=== PATIENT | male | born 1980 | race Caucasian/White ===

== ENCOUNTER 2020-07-08 18:59 | Emergency (ER) | payer MEDICAID ==
[~2020-07-08] VITALS: Ht 175.3 cm; Wt 86.4 kg
[2020-07-08] MEDS ORDERED: LORazepam 2 mg/ml vial IV ONE (19:30)
[2020-07-08] MEDS ORDERED: ondansetron/PF 4mg/2ml inj IV ONE (19:30)
[2020-07-08 19:50] LABS: BASOPHILS # (AUTO) 0.1 X10'3 (0-0.2); LYMPHOCYTES # (AUTO) 0.6 X10'3 (1.1-4.8); MONOCYTES # (AUTO) 0.4 X10'3 (0-0.9); NEUTROPHILS # (AUTO) 2.6 X10'3 (1.8-7.7); WHITE BLOOD COUNT 3.6 X10'3 (4.5-11.0)
[2020-07-08 19:52] LABS: BASOPHILS % (AUTO) 2.3 % (0-1); EOSINOPHILS % (AUTO) 0.3 % (0-6); HEMATOCRIT 45.3 % (42.0-52.0); HEMOGLOBIN 15.5 g/dl (14.0-17.9); LYMPHOCYTES % (AUTO) 15.2 % (21-51); MEAN CORPUSCULAR HEMOGLOBIN 32.3 PG (27.0-31.0); MEAN CORPUSCULAR HGB CONC 34.2 g/dL (33.0-36.5); MEAN CORPUSCULAR VOLUME 94.5 FL (78-98); MEAN PLATELET VOLUME 7.2 FL (7.4-10.4); MONOCYTES % (AUTO) 11.7 % (2-12); NEUTROPHILS % (AUTO) 70.5 % (42-75); PLATELET COUNT 377 X10'3 (140-440); RED BLOOD COUNT 4.79 X10'6 (4.70-6.10); RED CELL DISTRIBUTION WIDTH 16.4 % (11.5-14.5)
[2020-07-08 20:03] LABS: ALANINE AMINOTRANSFERASE 42 U/L (12-78); ALBUMIN/GLOBULIN RATIO 1.3 (1.1-1.5); ALKALINE PHOSPHATASE 51 IU/L (46-116); ANION GAP 11 (8-16); ASPARTATE AMINO TRANSFERASE 33 U/L (10-37); BILIRUBIN,TOTAL 0.5 MG/DL (0.1-1.0); BLOOD UREA NITROGEN 7 MG/DL (7-18); BUN/CREATININE RATIO 7.1 (5.4-32.0); CALCIUM 8.3 MG/DL (8.5-10.1); CHLORIDE 99 MMOL/L (99-107); CREATININE 0.99 MG/DL (0.60-1.10); GLUCOSE 110 MG/DL (70-104); MAGNESIUM 1.7 MG/DL (1.5-2.4); PHOSPHORUS 1.5 MG/DL (2.3-4.5); POTASSIUM 3.5 MMOL/L (3.5-5.1); SODIUM 132 MMOL/L (135-145); TOTAL CARBON DIOXIDE 21.7 MMOL/L (24-32); TOTAL PROTEIN 7.2 G/DL (6.4-8.2); eGFR 83 ML/MIN
--- NOTE | 2020-07-08 20:21 | NUR ---
PER MOM SEIZURE LASTED ABOUT 60 SEC DID NOT HIT HIS HEAD, PT WAS SITTING ON BED THEN FELL BACKWARDS ON PILLOWS AND HIS ARMS WENT UP AND STARTED GURGLING THEN MOTHER ROLLED HIM ON HIS SIDE. [phone] ROSSY
[2020-07-08] MEDS ORDERED: normal saline 1000ML IV soln IVB ONE (20:25)
[2020-07-08] MEDS ORDERED: ketorolac trometh. 30mg/ml inj. IV ONE (20:25)
[2020-07-08] MEDS ORDERED: morphine 4 MG/ML inj SYRINge IV ONE (21:10)
[2020-07-08 21:54] LABS: CLARITY,URINE CLEAR (Clear); COLOR,URINE YELLOW (Yellow); GLUCOSE, URINE NEGATIVE (Neg); KETONES,URINE 15 mg/dl (Neg); LEUKOCYTE ESTERASE ,URINE TRACE (Neg); NITRITES, URINE NEGATIVE (Neg); OCCULT BLOOD,URINE TRACE-INTACT (Neg); PROTEIN,URINE NEGATIVE (Neg); UROBILINOGEN,URINE 0.2 E.U/dL (0.2-1.0)
[2020-07-08 21:56] LABS: UA COLLECTION TYPE VOIDED
[2020-07-08 22:00] LABS: BACTERIA,URINE FEW /HPF (Neg); RBC,URINE 0-2 /HPF (0-2); SQUAMOUS EPITHELIAL CELL,UR FEW /LPF (FEW); WBC,URINE 0-4 /HPF (0-4)
[2020-07-08] MEDS ORDERED: KEP500T PO (22:45)
[2020-07-08] MEDS ORDERED: levetiracetam 250mg tablet PO ONE (22:45)
[2020-07-08 23:05] VITALS: BP 167/109
== END 2020-07-08 23:12 | disposition home or self-care (01) ==
LOC: ER 19:00
DX: R40.0 Somnolence (principal); G40.909 Epilepsy, unspecified, not intractable, without status epilepticus; R11.0 Nausea; I10 Essential (primary) hypertension; F12.90 Cannabis use, unspecified, uncomplicated; Z86.69 Personal history of other diseases of the nervous system and sense organs; Z98.890 Other specified postprocedural states; Z72.89 Other problems related to lifestyle; Z79.899 Other long term (current) drug therapy
CPT/HCPCS: 36415; 80053; 81001; 82948; 83735; 84100; 85025; 87088; 93005; 96361; 96374; 96375; 99285; J1885; J2060; J2270; J2405; J7030

== ENCOUNTER 2020-11-01 17:48 | Inpatient (IN) | payer MEDICAID ==
[~2020-11-01] VITALS: Ht 172.7 cm; Wt 88.6 kg
[~2020-11-01 17:48] MED LIST: KEP500T PO
[2020-11-01] MEDS ORDERED: normal saline 1000ML IV soln IV ONE (18:00)
[2020-11-01 18:43] LABS: CLARITY,URINE SLIGHTLY CLOUDY (Clear); COLOR,URINE RED (Yellow)
[2020-11-01 18:45] LABS: UA COLLECTION TYPE VOIDED
[2020-11-01 18:52] LABS: MUCUS STRANDS FEW /LPF (Neg); SQUAMOUS EPITHELIAL CELL,UR FEW /LPF (FEW)
[2020-11-01 18:53] LABS: FINE GRANULAR CAST 0-3 /LPF (NEGATIVE)
[2020-11-01 18:54] LABS: RBC,URINE 0-2 /HPF (0-2); RENAL CELLS, URINE MANY /HPF; WBC,URINE 0-4 /HPF (0-4)
[2020-11-01 18:56] LABS: BACTERIA,URINE NONE SEEN /HPF (Neg)
[2020-11-01 19:01] LABS: BASOPHILS % (AUTO) 0.2 % (0-1); EOSINOPHILS % (AUTO) 0 % (0-6); HEMATOCRIT 51.6 % (42.0-52.0); HEMOGLOBIN 17.5 g/dl (14.0-17.9); LYMPHOCYTES # (AUTO) 0.6 X10'3 (1.1-4.8); LYMPHOCYTES % (AUTO) 3.6 % (21-51); MEAN CORPUSCULAR HEMOGLOBIN 30.8 PG (27.0-31.0); MEAN CORPUSCULAR HGB CONC 33.9 g/dL (33.0-36.5); MEAN CORPUSCULAR VOLUME 90.9 FL (78-98); MEAN PLATELET VOLUME 7.9 FL (7.4-10.4); MONOCYTES # (AUTO) 1.5 X10'3 (0-0.9); MONOCYTES % (AUTO) 9.7 % (2-12); NEUTROPHILS # (AUTO) 13.3 X10'3 (1.8-7.7); NEUTROPHILS % (AUTO) 86.5 % (42-75); PLATELET COUNT 341 X10'3 (140-440); RED BLOOD COUNT 5.68 X10'6 (4.70-6.10); RED CELL DISTRIBUTION WIDTH 13.4 % (11.5-14.5); WHITE BLOOD COUNT 15.4 X10'3 (4.5-11.0)
[2020-11-01 19:05] LABS: ALANINE AMINOTRANSFERASE 30 U/L (12-78); ALBUMIN 4.5 G/DL (3.4-5.0); ALBUMIN/GLOBULIN RATIO 1.3 (1.1-1.5); ALKALINE PHOSPHATASE 56 IU/L (46-116); ANION GAP 16 (8-16); ASPARTATE AMINO TRANSFERASE 64 U/L (10-37); BILIRUBIN,TOTAL 1.4 MG/DL (0.1-1.0); BLOOD UREA NITROGEN 17 MG/DL (7-18); BUN/CREATININE RATIO 6.3 (5.4-32.0); CALCIUM 8.9 MG/DL (8.5-10.1); CHLORIDE 97 MMOL/L (99-107); CREATININE 2.68 MG/DL (0.60-1.10); GLUCOSE 142 MG/DL (70-104); POTASSIUM 3.1 MMOL/L (3.5-5.1); SODIUM 139 MMOL/L (135-145); TOTAL CARBON DIOXIDE 25.8 MMOL/L (24-32); TOTAL PROTEIN 8.1 G/DL (6.4-8.2); eGFR 26 ML/MIN
[2020-11-01 19:13] LABS: ETHANOL < 0.010 GM/DL (0.0-0.010)
[2020-11-01 19:17] LABS: URINE AMPHETAMINE SCREEN NEGATIVE (Neg); URINE BARBITUATE SCREEN NEGATIVE (Neg); URINE BENZODIAZEPINES SCREEN NEGATIVE (Neg); URINE CANNABINOID SCREEN NEGATIVE (Neg); URINE COCAINE SCREEN NEGATIVE (Neg); URINE METHADONE SCREEN NEGATIVE (Neg); URINE OPIATE SCREEN NEGATIVE (Neg); URINE PHENCYCLIDINE SCREEN NEGATIVE (Neg)
[2020-11-01 19:18] LABS: ACETAMINOPHEN < 2.0 UG/ML (10-30)
--- NOTE | 2020-11-01 19:46 | NUR ---
CONTACTED POISON CONTROL FOP INGESTION OF 16 OZ OF ACETONE(PER PT) , SPOKE WITH TRACEY AT THE [facility], LOOK FOR CND DEPRESSION AND GI UPSET . PT MAY SPELL OF ACETONE CHECK SKIN AND LIPS. S/S OF INGESTION ARE SIMILAR TO ETOH INTOXIFICATION , NEURO CHECK Q HR , SEIZURE PRECAUTIONS , AMBULATE WITH ASSISTANCE . REPEAT CBC , ADD MG , REPEAT CMP ADD AMAYLASE AND LIPASE,WITH LATIC 4 HR AFTER 1 DRAW . TREAT POTASSIUM OF 3.1 . URINE MAY BE POSITIVES FOR KETONES. PT MAY EXHIBIT MILD ACIDOSIS . MONITOR LABS . POISON CONTROL SUGGESTED X2 NS BOLUS WITH A BANANA BAG EKG FOR BASELINE AND ASSESS NS , MAY MEDICATED WITH ATIVAN FOR ANXIETY. AVOID SEDATIVES PERTICULARLY OPOIDS PER POISON CONTROL TO AVOID RESP DEPRESSION . MAY ALSO MEDICATE WITH PROTONIX AND ZOFRAN . .
--- NOTE | 2020-11-01 19:55 | NUR ---
pt to ct via wheel chair with instructional coach
[2020-11-01] MEDS ORDERED: potassium Cl 10 mEq/100mL bag IV ONE (20:00)
--- NOTE | 2020-11-01 20:03 | NUR ---
seizure precautions placed as recommended by poison control .
[2020-11-01] MEDS ORDERED: acetaminophen 325mg tablet PO PRN (20:05)
[2020-11-01] MEDS ORDERED: magnesium Cl slow-release 64mg tablet PO PRN (20:05)
[2020-11-01] MEDS ORDERED: magnesium 2GM in 50ml NS 50 ML IV PRN (20:05)
[2020-11-01] MEDS ORDERED: mag hydrox/Alum hydrox/simeth 30ml oral suspension PO PRN (20:05)
[2020-11-01] MEDS ORDERED: thiamine inj. 100 MG in normal saline 100ml IV soln 100 ML IV ONE (20:05)
[2020-11-01] MEDS ORDERED: magnesium hydroxide 30ml (MOM) UD suspension PO PRN (20:05)
[2020-11-01] MEDS ORDERED: magnesium 4gm in 100ml NS 100 ML IV PRN (20:05)
[2020-11-01] MEDS ORDERED: haloperidol 5mg tablet PO PRN (20:05)
[2020-11-01] MEDS ORDERED: potassium Cl 20 mEq SR tablet PO PRN (20:05)
[2020-11-01] MEDS ORDERED: potassium Cl 40MEQ/1/2NS 520ml 520 ML IV PRN (20:05)
[2020-11-01] MEDS ORDERED: folic acid 1mg/0.2ml inj IV ONE (20:15)
[2020-11-01] MEDS ORDERED: MULT-1085 PO (20:24)
[2020-11-01] MEDS ORDERED: HYDR25TA4 PO (20:24)
[2020-11-01] MEDS ORDERED: IBUP-1985 PO (20:24)
[2020-11-01] MEDS ORDERED: LEVE500T PO (20:24)
[2020-11-01] MEDS ORDERED: ZINC30CA PO (20:25)
--- NOTE | 2020-11-01 20:30 | NUR ---
PT C/O PAIN AT IV SITE . TO RIGHT WRIST . SITE COOL TO TOUCH FLUSHES WELL WITH GOOD BLOOD RETURN . WILL CONTINUE TO MONITOR . SLOWED BOLUS POTASSIUM IS ALSO INFUSING FROM THAT SITE. ATTEMPTD TO RESTART THE IV TO THE LEFT EXTREMITY WITH OUT POSITIVE RESULT . PT TOLERATED WELL .PRIMARY RN FARHAT AWARE OF IV ISSUES WILL CONTINUE TO MONITOR AND REASSESS NEEDED
[2020-11-01 20:31] LABS: ABG BASE EXCESS -4.6 mmol/L (-2.0-2.0); ABG HCO3 17.6 mmol/L (22.0-26.0); ABG PO2 (T) 76.6 mmHg (75.0-100.0); ALLEN'S TEST POSITIVE; FCOHb 0.9 % (0.0-3.9); FMetHb 0.3 % (0.0-1.5); FO2Hb 94.8 % (94-97); PATIENT TEMPERATURE 36.4; TOTAL HEMOGLOBIN 16.5 G/dl (14.0-18.0)
[2020-11-01] MEDS: normal saline 1000ml 1,000 ML IV SCH (20:46)
[2020-11-01] MEDS ORDERED: thiamine inj. 100 MG, MVI, adult No.4 with vit. K 10 ML in dextrose 5% water 500ml 500 ML IV SCH ×3 (21:00)
[2020-11-01] MEDS: ondansetron/PF 4mg/2ml inj IV PRN (21:21)
[2020-11-01] MEDS: LORazepam 2 mg/ml vial IV PRN (21:37)
--- NOTE | 2020-11-01 21:47 | NUR ---
PT MOTHER CALLED ALIVIA [phone] . PT HAS GIVEN PERMISSION TO TELL HER HE JEAN-PIERRE GOING TO BE ADMITTED
[2020-11-02] MEDS: ondansetron/PF 4mg/2ml inj IV PRN ×2 (04:18→21:49)
[2020-11-02 06:23] LABS: BASOPHILS % (AUTO) 0.2 % (0-1); EOSINOPHILS % (AUTO) 0 % (0-6); HEMATOCRIT 46.1 % (42.0-52.0); HEMOGLOBIN 15.6 g/dl (14.0-17.9); LYMPHOCYTES # (AUTO) 1.2 X10'3 (1.1-4.8); LYMPHOCYTES % (AUTO) 13.4 % (21-51); MEAN CORPUSCULAR HEMOGLOBIN 30.7 PG (27.0-31.0); MEAN CORPUSCULAR HGB CONC 33.9 g/dL (33.0-36.5); MEAN CORPUSCULAR VOLUME 90.7 FL (78-98); MEAN PLATELET VOLUME 8.1 FL (7.4-10.4); MONOCYTES # (AUTO) 1.2 X10'3 (0-0.9); MONOCYTES % (AUTO) 12.9 % (2-12); NEUTROPHILS # (AUTO) 6.9 X10'3 (1.8-7.7); NEUTROPHILS % (AUTO) 73.5 % (42-75); PLATELET COUNT 265 X10'3 (140-440); RED BLOOD COUNT 5.08 X10'6 (4.70-6.10); RED CELL DISTRIBUTION WIDTH 13.6 % (11.5-14.5); WHITE BLOOD COUNT 9.3 X10'3 (4.5-11.0)
[2020-11-02 06:31] LABS: ALANINE AMINOTRANSFERASE 25 U/L (12-78); ALBUMIN 3.4 G/DL (3.4-5.0); ALBUMIN/GLOBULIN RATIO 1.3 (1.1-1.5); ALKALINE PHOSPHATASE 40 IU/L (46-116); AMYLASE 86 U/L (25-115); ANION GAP 10 (8-16); ASPARTATE AMINO TRANSFERASE 44 U/L (10-37); BILIRUBIN,TOTAL 0.7 MG/DL (0.1-1.0); BLOOD UREA NITROGEN 15 MG/DL (7-18); BUN/CREATININE RATIO 8.1 (5.4-32.0); CALCIUM 7.4 MG/DL (8.5-10.1); CHLORIDE 106 MMOL/L (99-107); CREATININE 1.85 MG/DL (0.60-1.10); GLUCOSE 119 MG/DL (70-104); LIPASE 58 U/L (73-393); MAGNESIUM 1.8 MG/DL (1.5-2.4); PHOSPHORUS 2.5 MG/DL (2.3-4.5); SODIUM 141 MMOL/L (135-145); TOTAL CARBON DIOXIDE 25.3 MMOL/L (24-32); TOTAL PROTEIN 6.1 G/DL (6.4-8.2); eGFR 40 ML/MIN
[2020-11-02 07:06] LABS: POTASSIUM 2.9 MMOL/L (3.5-5.1)
[2020-11-02] MEDS: LORazepam 2 mg/ml vial IV PRN ×2 (07:39→21:50)
[2020-11-02] MEDS: pantoprazole 40 MG vial IV SCH (07:39)
[2020-11-02] MEDS: normal saline 1000ml 1,000 ML IV SCH ×2 (07:39→17:06)
[2020-11-02] MEDS: K and/or MAG REPLACEMENT MC SCH ×2 (07:52→20:00)
[2020-11-02] MEDS ORDERED: thiamine inj. 100 MG, MVI, adult No.4 with vit. K 10 ML in dextrose 5% water 500ml 500 ML IV SCH ×3 (08:00)
[2020-11-02] MEDS: potassium Cl 40MEQ/1/2NS 520ml 520 ML IV PRN ×2 (08:15→13:54)
--- NOTE | 2020-11-02 08:33 | NUR ---
Poison control called and was updated on pt AM labs and sxs. No new recommendations, continue to support and monitor sxs.
--- NOTE | 2020-11-02 09:10 | NUR ---
Dr. Dominique here seeing pt. Received VO for Compazine 10mg IV q 6 hours PRN N/V if Zofran ineffective.
[2020-11-02] MEDS ORDERED: proCHLORperazine 10 MG/2 ml inj IV PRN (09:20)
--- NOTE | 2020-11-02 09:20 | NUR ---
dr chavez came to see the pt and informed that pt was retching and has not got am meds as per provider its okay.new order given for compazine to xavier denny as she was giving me break.
--- NOTE | 2020-11-02 09:41 | NUR ---
tried to wake up pt to give morning meds but pt is sleeping ,no nausea or distress noted at this time ,will cont to monitor.vitals stable.
[2020-11-02] MEDS: multivitamins, therapeutics tablet PO SCH (10:52)
[2020-11-02] MEDS: folic acid 1mg tablet PO SCH (10:52)
[2020-11-02] MEDS: HYDROchlorothiazide 25mg tablet PO SCH (10:52)
[2020-11-02] MEDS: thiamine 100mg tablet PO SCH (10:52)
--- NOTE | 2020-11-02 11:38 | NUR ---
called pharmacy earlier regarding pt keppra not in [facility] as per pharmacy it will be ready ,will get medication ,as pt is back to sleeping again will give meds when pt is up.
[2020-11-02] MEDS: levetiracetam 250mg tablet PO SCH ×2 (13:54→21:07)
--- NOTE | 2020-11-02 18:45 | NUR ---
PATIENT UP TO BATHROOM WITH IV POLE, AMBULATING WITH A STEADY GAIT. WILL CONTINUE TO MONITOR
--- NOTE | 2020-11-02 19:27 | NUR ---
PATIENT STILL ON K DRIP WILL REDRAW K AFTER K IS FINISHED
--- NOTE | 2020-11-02 21:16 | NUR ---
Patient in room ED 4. I have received report from CLAUDIA Wilson and had the opportunity to ask questions and assume patient care.
[2020-11-02 21:50] VITALS: BP_SYST 164; BP_DIAS 106; BP_DIAS 115
[2020-11-02 23:18] VITALS: BP 132/91
[2020-11-03 02:00] VITALS: BP 143/94
[2020-11-03] MEDS: normal saline 1000ml 1,000 ML IV SCH ×3 (02:50→22:56)
[2020-11-03] MEDS: HYDROcodone/acetaminophen 5mg/325mg tablet PO PRN ×2 (02:51→18:15)
[2020-11-03 06:00] VITALS: BP 142/90
[2020-11-03] MEDS: LORazepam 2 mg/ml vial IV PRN ×4 (06:01→20:33)
--- NOTE | 2020-11-03 06:10 | NUR ---
Patient in room PCU 3012. I have received report from CLAUDIA Guallpa and had the opportunity to ask questions and assume patient care.
--- NOTE | 2020-11-03 06:20 | NUR ---
Problems reprioritized. Patient report given, questions answered & plan of care reviewed with Ace RN's.
--- NOTE | 2020-11-03 06:20 | NUR ---
Patient in room PCU 3012. I have received report from Saloni TAYLOR and had the opportunity to ask questions and assume patient care.
[2020-11-03] MEDS: K and/or MAG REPLACEMENT MC SCH ×2 (08:00→20:00)
[2020-11-03 08:02] LABS: BASOPHILS % (AUTO) 0.2 % (0-1); EOSINOPHILS # (AUTO) 0.1 X10'3 (0-0.9); EOSINOPHILS % (AUTO) 1.3 % (0-6); LYMPHOCYTES # (AUTO) 0.9 X10'3 (1.1-4.8); LYMPHOCYTES % (AUTO) 11.2 % (21-51); MEAN CORPUSCULAR HEMOGLOBIN 30.9 PG (27.0-31.0); MEAN CORPUSCULAR VOLUME 90.8 FL (78-98); MEAN PLATELET VOLUME 8.5 FL (7.4-10.4); MONOCYTES # (AUTO) 0.4 X10'3 (0-0.9); MONOCYTES % (AUTO) 5.6 % (2-12); NEUTROPHILS # (AUTO) 6.4 X10'3 (1.8-7.7); NEUTROPHILS % (AUTO) 81.7 % (42-75); PLATELET COUNT 213 X10'3 (140-440); RED BLOOD COUNT 4.52 X10'6 (4.70-6.10); WHITE BLOOD COUNT 7.8 X10'3 (4.5-11.0)
[2020-11-03 08:22] LABS: ALANINE AMINOTRANSFERASE 20 U/L (12-78); ALBUMIN 2.7 G/DL (3.4-5.0); ALBUMIN/GLOBULIN RATIO 0.9 (1.1-1.5); ALKALINE PHOSPHATASE 43 IU/L (46-116); AMYLASE 42 U/L (25-115); ANION GAP 10 (8-16); ASPARTATE AMINO TRANSFERASE 21 U/L (10-37); BILIRUBIN,TOTAL 0.6 MG/DL (0.1-1.0); BLOOD UREA NITROGEN 8 MG/DL (7-18); BUN/CREATININE RATIO 8.6 (5.4-32.0); CALCIUM 7.3 MG/DL (8.5-10.1); CHLORIDE 105 MMOL/L (99-107); CREATININE 0.93 MG/DL (0.60-1.10); GLUCOSE 112 MG/DL (70-104); LIPASE 55 U/L (73-393); MAGNESIUM 1.9 MG/DL (1.5-2.4); SODIUM 140 MMOL/L (135-145); TOTAL CARBON DIOXIDE 25.3 MMOL/L (24-32); TOTAL PROTEIN 5.6 G/DL (6.4-8.2); eGFR 89 ML/MIN
[2020-11-03] MEDS: multivitamins, therapeutics tablet PO SCH (08:30)
[2020-11-03] MEDS: folic acid 1mg tablet PO SCH (08:30)
[2020-11-03] MEDS: HYDROchlorothiazide 25mg tablet PO SCH (08:30)
[2020-11-03] MEDS: thiamine 100mg tablet PO SCH (08:30)
[2020-11-03] MEDS: pantoprazole 40 MG vial IV SCH (08:30)
--- NOTE | 2020-11-03 08:57 | NUR ---
PAGER ID: [phone] MESSAGE: Re: Clark Joseph Room 3012C. K critical lab 3.0. Will replace per protocol. Yashira [facility] [phone]
[2020-11-03] MEDS: ondansetron/PF 4mg/2ml inj IV PRN ×2 (09:12→23:37)
[2020-11-03] MEDS: levetiracetam 250mg tablet PO SCH ×2 (09:12→20:35)
[2020-11-03] MEDS: potassium Cl 20 mEq SR tablet PO PRN ×2 (09:13→22:57)
[2020-11-03 11:00] VITALS: BP 131/91
--- NOTE | 2020-11-03 12:34 | NUR ---
Problems reprioritized. Patient report given, questions answered & plan of care reviewed with Rochelle TAYLOR.
--- NOTE | 2020-11-03 13:13 | NUR ---
Pt wheeled over to room 360A in bed. Pt alert and oriented and vitals WNL. Care to be resumed by Rochelle TAYLOR
[2020-11-03 13:21] VITALS: BP 143/99
--- NOTE | 2020-11-03 14:14 | NUR ---
Patient stated his abdomen hurting but when I offered [employer], he refused. He was initially requesting for Ibuprofen, I told patient that he does not have an order for Ibuprofen and probably not a good idea as it can bleed his stomach since he drinks alcohol heavily. He requested Ativan as he also admit feels being anxious at this time. Ativan 2mg IV given for anxiety.
--- NOTE | 2020-11-03 18:35 | NUR ---
Patient in room GISEL 360. I have received report from PAULINE TAYLOR and had the opportunity to ask questions and assume patient care.
[2020-11-03 20:00] VITALS: BP 140/99
[2020-11-04] VITALS: BP 140/95
[2020-11-04] MEDS: LORazepam 2 mg/ml vial IV PRN ×3 (00:35→14:48)
[2020-11-04] MEDS: ondansetron/PF 4mg/2ml inj IV PRN ×2 (05:57→12:58)
[2020-11-04] MEDS: HYDROcodone/acetaminophen 5mg/325mg tablet PO PRN ×2 (05:59→12:59)
[2020-11-04 06:32] LABS: BASOPHILS % (AUTO) 0.3 % (0-1); EOSINOPHILS # (AUTO) 0.2 X10'3 (0-0.9); EOSINOPHILS % (AUTO) 3.2 % (0-6); HEMATOCRIT 40.4 % (42.0-52.0); HEMOGLOBIN 13.8 g/dl (14.0-17.9); LYMPHOCYTES # (AUTO) 1.2 X10'3 (1.1-4.8); LYMPHOCYTES % (AUTO) 20.8 % (21-51); MEAN CORPUSCULAR HEMOGLOBIN 30.9 PG (27.0-31.0); MEAN CORPUSCULAR VOLUME 90.8 FL (78-98); MEAN PLATELET VOLUME 8.2 FL (7.4-10.4); MONOCYTES # (AUTO) 0.5 X10'3 (0-0.9); MONOCYTES % (AUTO) 7.6 % (2-12); NEUTROPHILS % (AUTO) 68.1 % (42-75); PLATELET COUNT 226 X10'3 (140-440); RED BLOOD COUNT 4.45 X10'6 (4.70-6.10); RED CELL DISTRIBUTION WIDTH 13.3 % (11.5-14.5); WHITE BLOOD COUNT 5.9 X10'3 (4.5-11.0)
[2020-11-04 06:43] LABS: ALANINE AMINOTRANSFERASE 19 U/L (12-78); ALBUMIN 2.7 G/DL (3.4-5.0); ALBUMIN/GLOBULIN RATIO 0.9 (1.1-1.5); ALKALINE PHOSPHATASE 43 IU/L (46-116); AMYLASE 41 U/L (25-115); ANION GAP 6 (8-16); ASPARTATE AMINO TRANSFERASE 13 U/L (10-37); BILIRUBIN,TOTAL 0.4 MG/DL (0.1-1.0); BLOOD UREA NITROGEN 8 MG/DL (7-18); BUN/CREATININE RATIO 11.3 (5.4-32.0); CALCIUM 7.8 MG/DL (8.5-10.1); CHLORIDE 107 MMOL/L (99-107); CREATININE 0.71 MG/DL (0.60-1.10); GLUCOSE 102 MG/DL (70-104); LIPASE 60 U/L (73-393); MAGNESIUM 1.9 MG/DL (1.5-2.4); PHOSPHORUS 2.4 MG/DL (2.3-4.5); POTASSIUM 3.9 MMOL/L (3.5-5.1); SODIUM 140 MMOL/L (135-145); TOTAL CARBON DIOXIDE 27.3 MMOL/L (24-32); TOTAL PROTEIN 5.8 G/DL (6.4-8.2); eGFR > 90 ML/MIN
[2020-11-04 07:00] VITALS: BP 144/97
[2020-11-04] MEDS ORDERED: pantoprazole 40mg Tablet.DR PO SCH (07:30)
[2020-11-04] MEDS: K and/or MAG REPLACEMENT MC SCH (08:00)
[2020-11-04] MEDS: thiamine 100mg tablet PO SCH (08:35)
[2020-11-04] MEDS: multivitamins, therapeutics tablet PO SCH (08:35)
[2020-11-04] MEDS: levetiracetam 250mg tablet PO SCH (08:35)
[2020-11-04] MEDS: folic acid 1mg tablet PO SCH (08:36)
[2020-11-04] MEDS: HYDROchlorothiazide 25mg tablet PO SCH (08:36)
[2020-11-04 11:00] VITALS: BP 130/92
[2020-11-04] MEDS: normal saline 1000ml 1,000 ML IV SCH (12:15)
[2020-11-04] MEDS ORDERED: ONDA4TAB6 PO (12:51)
[2020-11-04] MEDS ORDERED: PANT40TA54 PO (12:51)
[2020-11-04] MEDS ORDERED: folic acid tablet PO (12:51)
[2020-11-04] MEDS ORDERED: ACET-1008 PO (12:51)
[2020-11-04] MEDS ORDERED: thiamine tablet PO (12:51)
--- NOTE | 2020-11-04 13:22 | NUR ---
Per patient he would have to call a family or a friend to give him a ride home. He said that it can be around 04:30pm as they are at work. Patient denied having possession of vehicle at the parking lot and that he will not be driving back home. I strongly advised patient not to drive back home and have someone else drive for him especially that he is receiving narcotic and ativan while he is here at the hospital. He said that he wouldn't drive and that he's not lying to me. Patient stated he will let me know once he confirmed who will drive him home today.
--- NOTE | 2020-11-04 14:52 | NUR ---
Peripheral IV catheter removed, tip intact. Patient stated that he will be able to get into the house when he gets home. Wallpaper Hanger Helper Princess calling a cab for patient ride home through [employer].
--- NOTE | 2020-11-04 14:55 | NUR ---
Patient was strongly discouraged to drink alcohol, patient verbalized understanding of this instruction
--- NOTE | 2020-11-04 15:10 | NUR ---
Per Princess, Upholsterer Apprentice the persons she spoke to from [employer] gave her estimated time of picking crew supervisor at 5:00pm. The transportation will be from [facility] transportation.
--- NOTE | 2020-11-04 16:15 | NUR ---
Patient was transported by CRISTINA Johnson via wheelchair. Patient left with his belongings with him including his discharge folder.
== END 2020-11-04 16:17 | disposition home or self-care (01) | DRG 469 ==
LOC: ER 17:50 → ED HOLD 20:03 → PCU 3S 11-02 21:25 → SUR 3N 11-03 13:07
PROVIDERS: ADMIT Family Medicine; ATTEND Family Medicine
DX: N17.9 Acute kidney failure, unspecified (principal); R31.0 Gross hematuria; I10 Essential (primary) hypertension; F12.90 Cannabis use, unspecified, uncomplicated; E87.6 Hypokalemia; T52.4X1A Toxic effect of ketones, accidental (unintentional), initial encounter; Y92.89 Other specified places as the place of occurrence of the external cause; F10.20 Alcohol dependence, uncomplicated
CPT/HCPCS: 36415; 36600; 74176; 76937; 80053; 80305; 80320; 80329; 81001; 82150; 82803; 82948; 83605; 83690; 83735; 84100; 84132; 84443; 85018; 85025; 85610; 87040; 87081; 93005; 96361; 97161; 97530; 99285; C9113; G0378; J0780; J2060; J2405; J3411; J3480; J3490; J7030; J7060

== ENCOUNTER 2020-11-30 15:53 | Emergency (ER) | payer MEDICAID ==
[~2020-11-30] VITALS: Ht 172.7 cm; Wt 90.9 kg
[~2020-11-30 15:53] MED LIST changes: +HYDR25TA4 PO; -KEP500T PO; +LEVE500T PO; +MULT-1085 PO; +ONDA4TAB6 PO; +PANT40TA54 PO; +folic acid tablet PO; +thiamine tablet PO
[2020-11-30] MEDS ORDERED: normal saline 1000ML IV soln IVB ONE ×2 (16:25→19:20)
[2020-11-30 16:50] LABS: BASOPHILS % (AUTO) 0.7 % (0-1); EOSINOPHILS % (AUTO) 0.1 % (0-6); HEMATOCRIT 45.3 % (42.0-52.0); HEMOGLOBIN 15.4 g/dl (14.0-17.9); LYMPHOCYTES # (AUTO) 0.9 X10'3 (1.1-4.8); LYMPHOCYTES % (AUTO) 12.3 % (21-51); MEAN CORPUSCULAR HEMOGLOBIN 30.7 PG (27.0-31.0); MEAN CORPUSCULAR VOLUME 90.1 FL (78-98); MEAN PLATELET VOLUME 7.7 FL (7.4-10.4); MONOCYTES # (AUTO) 0.4 X10'3 (0-0.9); MONOCYTES % (AUTO) 5.6 % (2-12); NEUTROPHILS # (AUTO) 5.8 X10'3 (1.8-7.7); NEUTROPHILS % (AUTO) 81.3 % (42-75); PLATELET COUNT 257 X10'3 (140-440); RED BLOOD COUNT 5.03 X10'6 (4.70-6.10); RED CELL DISTRIBUTION WIDTH 13.6 % (11.5-14.5); WHITE BLOOD COUNT 7.1 X10'3 (4.5-11.0)
[2020-11-30 17:03] LABS: ALANINE AMINOTRANSFERASE 31 U/L (12-78); ALBUMIN 3.8 G/DL (3.4-5.0); ALBUMIN/GLOBULIN RATIO 1.2 (1.1-1.5); ALKALINE PHOSPHATASE 54 IU/L (46-116); ANION GAP 13 (8-16); ASPARTATE AMINO TRANSFERASE 35 U/L (10-37); BILIRUBIN,TOTAL 0.8 MG/DL (0.1-1.0); BLOOD UREA NITROGEN 9 MG/DL (7-18); BUN/CREATININE RATIO 11.8 (5.4-32.0); CALCIUM 8.5 MG/DL (8.5-10.1); CHLORIDE 102 MMOL/L (99-107); CREATININE 0.76 MG/DL (0.60-1.10); GLUCOSE 93 MG/DL (70-104); POTASSIUM 3.8 MMOL/L (3.5-5.1); SODIUM 139 MMOL/L (135-145); TOTAL CARBON DIOXIDE 24.2 MMOL/L (24-32); eGFR > 90 ML/MIN
[2020-11-30 17:08] LABS: ETHANOL < 0.010 GM/DL (0.0-0.010); MAGNESIUM 1.3 MG/DL (1.5-2.4); TROPONIN I < 0.04 NG/ML (0.0-0.05)
[2020-11-30] MEDS ORDERED: chlordiazePOXIDE 25mg capsule PO ONE (17:25)
[2020-11-30] MEDS ORDERED: potassium Cl 20 mEq SR tablet PO ONE (17:25)
[2020-11-30] MEDS ORDERED: LORazepam 2 mg/ml vial IV ONE (17:25)
[2020-11-30] MEDS ORDERED: magnesium 2GM in 50ml NS 50 ML IV ONE (17:25)
[2020-11-30] MEDS ORDERED: magnesium oxide 400mg tablet PO ONE (17:25)
[2020-11-30] MEDS ORDERED: cloNIDine 0.1 mg tablet PO ONE (19:15)
[2020-11-30] MEDS ORDERED: cloNIDine 0.1 mg tablet PO SCH (19:15)
[2020-11-30] MEDS ORDERED: PROM12.512 PO (19:17)
[2020-11-30] MEDS ORDERED: CHLO25CA10 PO (19:17)
[2020-11-30 21:02] VITALS: BP 138/99
== END 2020-11-30 21:03 | disposition home or self-care (01) ==
LOC: ER 15:53
DX: F10.239 Alcohol dependence with withdrawal, unspecified (principal); E83.42 Hypomagnesemia; R11.2 Nausea with vomiting, unspecified; R55 Syncope and collapse; R10.9 Unspecified abdominal pain; G40.909 Epilepsy, unspecified, not intractable, without status epilepticus; I10 Essential (primary) hypertension; F12.90 Cannabis use, unspecified, uncomplicated; Z72.89 Other problems related to lifestyle; Z79.899 Other long term (current) drug therapy; Y90.5 Blood alcohol level of 100-119 mg/100 ml
CPT/HCPCS: 36415; 71045; 80053; 80320; 83735; 84484; 85025; 93005; 96365; 96366; 96375; 99285; J2060; J3475; J7030

== ENCOUNTER 2020-12-19 19:37 | Emergency (ER) | payer MEDICAID ==
[~2020-12-19] VITALS: Ht 180.3 cm; Wt 100.0 kg
[~2020-12-19 19:37] MED LIST changes: +CHLO25CA10 PO; +PROM12.512 PO
[2020-12-19 19:46] VITALS: BP 138/95
[2020-12-19] MEDS ORDERED: normal saline 1000ml 1,000 ML IV ONE (19:55)
[2020-12-19] MEDS ORDERED: ondansetron/PF 4mg/2ml inj IV ONE (19:55)
[2020-12-19] MEDS ORDERED: normal saline 1000ML IV soln IVB ONE (20:25)
[2020-12-19] MEDS ORDERED: levetiracetam 250mg tablet PO ONE (21:50)
[2020-12-19] MEDS ORDERED: LEVE10002 PO (21:51)
--- NOTE | 2020-12-19 22:29 | NUR ---
arranged pickers material handlers from [facility] cab to [address] [place] [address]
== END 2020-12-19 23:55 | disposition home or self-care (01) ==
LOC: ER 19:37
DX: F10.129 Alcohol abuse with intoxication, unspecified (principal); I10 Essential (primary) hypertension; F12.90 Cannabis use, unspecified, uncomplicated; Z86.69 Personal history of other diseases of the nervous system and sense organs; Z98.890 Other specified postprocedural states; Z79.899 Other long term (current) drug therapy; Y90.9 Presence of alcohol in blood, level not specified
CPT/HCPCS: 96361; 96374; 99283; J2405; J7030

== ENCOUNTER 2020-12-22 00:54 | Inpatient (IN) | payer MEDICAID ==
[~2020-12-22] VITALS: Ht 175.3 cm; Wt 90.9 kg
[~2020-12-22 00:54] MED LIST changes: +LEVE10002 PO
[2020-12-22] MEDS ORDERED: normal saline 1000ML IV soln IVB ONE ×2 (01:10→05:35)
[2020-12-22] MEDS ORDERED: magnesium oxide 400mg tablet PO ONE ×2 (01:10→08:05)
[2020-12-22] MEDS ORDERED: thiamine 100mg tablet PO ONE ×2 (01:10→08:05)
[2020-12-22] MEDS ORDERED: phenobarbital inj 260 MG in normal saline 100ml IV soln 100 ML IV ONE (01:10)
[2020-12-22] MEDS ORDERED: phenobarbital inj 260 MG in normal saline 100ml IV soln 98 ML IV ONE (01:45)
[2020-12-22 01:54] LABS: BASOPHILS % (AUTO) 0.5 % (0-1); EOSINOPHILS % (AUTO) 0.2 % (0-6); HEMATOCRIT 40.7 % (42.0-52.0); HEMOGLOBIN 13.7 g/dl (14.0-17.9); LYMPHOCYTES % (AUTO) 11.6 % (21-51); MEAN CORPUSCULAR HEMOGLOBIN 30.7 PG (27.0-31.0); MEAN CORPUSCULAR HGB CONC 33.6 g/dL (33.0-36.5); MEAN CORPUSCULAR VOLUME 91.3 FL (78-98); MEAN PLATELET VOLUME 7.8 FL (7.4-10.4); MONOCYTES # (AUTO) 0.5 X10'3 (0-0.9); MONOCYTES % (AUTO) 5.4 % (2-12); NEUTROPHILS # (AUTO) 7.2 X10'3 (1.8-7.7); NEUTROPHILS % (AUTO) 82.3 % (42-75); PLATELET COUNT 236 X10'3 (140-440); RED BLOOD COUNT 4.46 X10'6 (4.70-6.10); RED CELL DISTRIBUTION WIDTH 14.6 % (11.5-14.5); WHITE BLOOD COUNT 8.8 X10'3 (4.5-11.0)
[2020-12-22 02:09] LABS: ALANINE AMINOTRANSFERASE 53 U/L (12-78); ALBUMIN 3.4 G/DL (3.4-5.0); ALBUMIN/GLOBULIN RATIO 1.1 (1.1-1.5); ALKALINE PHOSPHATASE 67 IU/L (46-116); ANION GAP 10 (8-16); ASPARTATE AMINO TRANSFERASE 63 U/L (10-37); BILIRUBIN,TOTAL 0.3 MG/DL (0.1-1.0); BLOOD UREA NITROGEN 8 MG/DL (7-18); BUN/CREATININE RATIO 12.3 (5.4-32.0); CALCIUM 8.1 MG/DL (8.5-10.1); CHLORIDE 105 MMOL/L (99-107); CREATININE 0.65 MG/DL (0.60-1.10); GLUCOSE 87 MG/DL (70-104); MAGNESIUM 1.5 MG/DL (1.5-2.4); POTASSIUM 3.6 MMOL/L (3.5-5.1); SODIUM 144 MMOL/L (135-145); TOTAL CARBON DIOXIDE 28.8 MMOL/L (24-32); TOTAL PROTEIN 6.4 G/DL (6.4-8.2); eGFR > 90 ML/MIN
[2020-12-22 02:10] LABS: ETHANOL 0.331 GM/DL (0.0-0.010)
[2020-12-22] MEDS ORDERED: phenobarbital inj 130 MG in normal saline 100ml IV soln 99 ML IV ONE ×2 (02:50→03:55)
--- NOTE | 2020-12-22 05:38 | NUR ---
PT AMBULATED WITHOUT ASSISTANCE TO BATHROOM TO PROVIDE URINE SAMPLE
[2020-12-22 06:00] LABS: CKMB RELATIVE INDEX 0.6 RATIO (0-2.5); CREATINE KINASE 1162 U/L (39-308)
[2020-12-22 06:22] LABS: URINE AMPHETAMINE SCREEN NEGATIVE (Neg); URINE BARBITUATE SCREEN POSITIVE (Neg); URINE BENZODIAZEPINES SCREEN POSITIVE (Neg); URINE CANNABINOID SCREEN NEGATIVE (Neg); URINE COCAINE SCREEN NEGATIVE (Neg); URINE METHADONE SCREEN NEGATIVE (Neg); URINE OPIATE SCREEN NEGATIVE (Neg); URINE PHENCYCLIDINE SCREEN NEGATIVE (Neg)
--- NOTE | 2020-12-22 08:02 | NUR ---
DR. VEGA AT BEDSIDE EVALUATING PATIENT. PT ANXIOUS AND TALKATIVE. STATES, IM HEARING VOICES.
[2020-12-22] MEDS ORDERED: magnesium 2GM in 50ml NS 50 ML IV ONE (08:05)
[2020-12-22] MEDS ORDERED: cloNIDine 0.1 MG/24 HOUR patch (7 day patch) TD ONE (08:05)
[2020-12-22] MEDS ORDERED: levetiracetam inj 1,000 MG in normal saline 100ml IV soln 90 ML IV SCH (08:05)
[2020-12-22] MEDS ORDERED: LORazepam 2 mg/ml vial IV ONE ×2 (08:05→09:15)
[2020-12-22] MEDS ORDERED: haloperidol lactate 5mg/ml inj IM ONE (08:05)
[2020-12-22] MEDS ORDERED: levetiracetam-NS 1000mg/100ml 100 ML IV SCH (08:05)
[2020-12-22] MEDS ORDERED: potassium Cl 20 mEq SR tablet PO ONE (08:05)
[2020-12-22] MEDS ORDERED: folic acid 1mg tablet PO ONE (08:05)
[2020-12-22] MEDS ORDERED: levetiracetam-NS 1000mg/100ml 100 ML IV ONE (08:18)
[2020-12-22] MEDS ORDERED: haloperidol lactate 5mg/ml inj IM PRN (10:00)
[2020-12-22] MEDS ORDERED: morphine 2 MG/ML inj. syringe IV PRN (10:00)
[2020-12-22] MEDS ORDERED: ondansetron/PF 4mg/2ml inj IV PRN (10:00)
[2020-12-22] MEDS ORDERED: magnesium Cl slow-release 64mg tablet PO PRN (10:00)
[2020-12-22] MEDS ORDERED: dicyclomine 10 MG capsule PO PRN (10:00)
[2020-12-22] MEDS ORDERED: potassium Cl 40MEQ/1/2NS 520ml 520 ML IV PRN ×2 (10:00)
[2020-12-22] MEDS ORDERED: magnesium hydroxide 30ml (MOM) UD suspension PO PRN (10:00)
[2020-12-22] MEDS ORDERED: magnesium 2GM in 50ml NS 50 ML IV PRN (10:00)
[2020-12-22] MEDS ORDERED: HYDROcodone/acetaminophen 5mg/325mg tablet PO PRN (10:00)
[2020-12-22] MEDS ORDERED: diphenhydrAMINE 25mg capsule PO PRN (10:00)
[2020-12-22] MEDS ORDERED: thiamine 100mg/ml 2ml inj. IV ONE (10:00)
[2020-12-22] MEDS ORDERED: acetaminophen 650mg rectal suppository RC PRN (10:00)
[2020-12-22] MEDS: propranolol 10mg tablet PO SCH ×2 (10:00→19:28)
[2020-12-22] MEDS ORDERED: magnesium 4gm in 100ml NS 100 ML IV PRN (10:00)
[2020-12-22] MEDS ORDERED: potassium Cl 20 mEq SR tablet PO PRN (10:00)
[2020-12-22] MEDS ORDERED: bisacodyl 10mg suppository rectal RC PRN (10:00)
[2020-12-22] MEDS ORDERED: dextrose 50%-water 50ml dispensing syringe IV PRN (10:00)
[2020-12-22] MEDS ORDERED: mag hydrox/Alum hydrox/simeth 30ml oral suspension PO PRN ×2 (10:00)
[2020-12-22] MEDS ORDERED: cloNIDine 0.1 mg tablet PO PRN (10:00)
[2020-12-22] MEDS ORDERED: loperamide 2mg capsule PO PRN (10:00)
[2020-12-22] MEDS ORDERED: cyclobenzaprine 10mg tablet PO PRN (10:00)
[2020-12-22] MEDS ORDERED: acetaminophen 325mg tablet PO PRN ×2 (10:00)
--- NOTE | 2020-12-22 10:30 | NUR ---
inderal not given. pt sedated with haldol and ativan. pt unable to swallow.
[2020-12-22 10:39] LABS: CLARITY,URINE SLIGHTLY CLOUDY (Clear); COLOR,URINE YELLOW (Yellow); GLUCOSE, URINE NEGATIVE (Neg); KETONES,URINE TRACE mg/dl (Neg); LEUKOCYTE ESTERASE ,URINE NEGATIVE (Neg); NITRITES, URINE NEGATIVE (Neg); OCCULT BLOOD,URINE NEGATIVE (Neg); PH,URINE 7.5 (4.8-8.0); PROTEIN,URINE TRACE mg/dl (Neg)
[2020-12-22 10:44] LABS: UA COLLECTION TYPE CLN CATCH MIDSTREAM
[2020-12-22 10:46] LABS: SQUAMOUS EPITHELIAL CELL,UR FEW /LPF (FEW)
[2020-12-22 10:47] LABS: BACTERIA,URINE FEW /HPF (Neg); RBC,URINE NONE SEEN /HPF (0-2); WBC,URINE 0-4 /HPF (0-4)
[2020-12-22 10:50] LABS: MUCUS STRANDS FEW /LPF (Neg)
[2020-12-22] MEDS: levetiracetam inj 1,000 MG in normal saline 100ml IV soln 90 ML IV SCH (12:18)
[2020-12-22] MEDS: LORazepam 2 mg/ml vial IV PRN ×2 (12:19→16:00)
[2020-12-22] MEDS ORDERED: PANT-47 PO (12:36)
[2020-12-22] MEDS ORDERED: FOLI0.8T3 PO (12:36)
[2020-12-22] MEDS ORDERED: ACET-2389 PO (12:36)
[2020-12-22] MEDS ORDERED: ONDA-103 PO (12:36)
[2020-12-22] MEDS ORDERED: HYDR25TA5 PO (12:36)
[2020-12-22] MEDS ORDERED: NALT50TA PO (12:36)
[2020-12-22] MEDS ORDERED: LORA10TA7 PO (12:36)
[2020-12-22] MEDS: dextrose 5%-normal saline 1,000 ML IV SCH ×2 (12:47→23:10)
[2020-12-22 15:53] VITALS: BP 135/95
--- NOTE | 2020-12-22 16:10 | NUR ---
Paged Dr. Toth PAGER ID: [phone] MESSAGE: PIERRE Rodrigez RN ext [phone]. RE: Clark Joseph. Patient here already. HR 130's, very anxious I gave Ativan 2mg IV. Patient temp is 100.1, skin warm to touch also he has on and off coughing. No blood culture done at ER
--- NOTE | 2020-12-22 16:51 | NUR ---
Covid 19 test done, specimen given to Becca digital intern at bedside who was doing blood culture
[2020-12-22] MEDS: piperacillin/tazo 3.375gm/50ml 50 ML IV SCH (17:00)
--- NOTE | 2020-12-22 17:22 | NUR ---
Zosyn IV started, blood culture x 2 done prior to administration of Zosyn IV.
--- NOTE | 2020-12-22 18:10 | NUR ---
Problems reprioritized. Patient report given, questions answered & plan of care reviewed with Jackie TAYLOR.
--- NOTE | 2020-12-22 18:37 | NUR ---
Problems reprioritized. Patient report given, questions answered & plan of care reviewed with Pat RN.
[2020-12-22 19:29] VITALS: BP 140/95
[2020-12-22] MEDS: heparin, porcine 5000 units/ml vial SQ SCH (19:29)
[2020-12-22] MEDS: K and/or MAG REPLACEMENT MC SCH (20:00)
[2020-12-22 22:00] VITALS: BP 142/92
[2020-12-22] MEDS ORDERED: vancomycin/NS 1 GM ADD-VANTAGE 250 ML IV SCH (22:00)
[2020-12-23] MEDS: piperacillin/tazo 3.375gm/50ml 50 ML IV SCH ×4 (00:56→23:04)
[2020-12-23 02:00] VITALS: BP 145/99
[2020-12-23] MEDS: dextrose 5%-normal saline 1,000 ML IV SCH ×3 (02:00→18:00)
[2020-12-23] MEDS: HYDROcodone/acetaminophen 10/325mg tab PO PRN ×2 (02:25→20:49)
[2020-12-23 06:00] VITALS: BP 154/111
--- NOTE | 2020-12-23 06:29 | NUR ---
Problems reprioritized. Patient report given, questions answered & plan of care reviewed with CLAUDIA Isbell.
[2020-12-23 07:45] LABS: BASOPHILS % (AUTO) 0.6 % (0-1); EOSINOPHILS # (AUTO) 0.1 X10'3 (0-0.9); EOSINOPHILS % (AUTO) 1.3 % (0-6); HEMATOCRIT 40.1 % (42.0-52.0); HEMOGLOBIN 13.5 g/dl (14.0-17.9); LYMPHOCYTES # (AUTO) 0.7 X10'3 (1.1-4.8); LYMPHOCYTES % (AUTO) 11.1 % (21-51); MEAN CORPUSCULAR HEMOGLOBIN 31.2 PG (27.0-31.0); MEAN CORPUSCULAR HGB CONC 33.7 g/dL (33.0-36.5); MEAN CORPUSCULAR VOLUME 92.7 FL (78-98); MEAN PLATELET VOLUME 8.3 FL (7.4-10.4); MONOCYTES # (AUTO) 0.4 X10'3 (0-0.9); MONOCYTES % (AUTO) 6.3 % (2-12); NEUTROPHILS # (AUTO) 4.8 X10'3 (1.8-7.7); NEUTROPHILS % (AUTO) 80.7 % (42-75); PLATELET COUNT 160 X10'3 (140-440); RED BLOOD COUNT 4.33 X10'6 (4.70-6.10); RED CELL DISTRIBUTION WIDTH 14.5 % (11.5-14.5); WHITE BLOOD COUNT 5.9 X10'3 (4.5-11.0)
[2020-12-23] MEDS: K and/or MAG REPLACEMENT MC SCH ×2 (08:00→19:25)
[2020-12-23] MEDS ORDERED: folic acid inj. 2 MG, thiamine inj. 100 MG, MVI, adult No.4 with vit. K 10 ML in dextro... IV SCH ×4 (08:00)
[2020-12-23 08:14] LABS: ALANINE AMINOTRANSFERASE 47 U/L (12-78); ALBUMIN 2.9 G/DL (3.4-5.0); ALBUMIN/GLOBULIN RATIO 0.9 (1.1-1.5); ALKALINE PHOSPHATASE 64 IU/L (46-116); AMYLASE 45 U/L (25-115); ANION GAP 10 (8-16); ASPARTATE AMINO TRANSFERASE 51 U/L (10-37); BILIRUBIN,TOTAL 0.8 MG/DL (0.1-1.0); BLOOD UREA NITROGEN 10 MG/DL (7-18); BUN/CREATININE RATIO 14.1 (5.4-32.0); CALCIUM 7.9 MG/DL (8.5-10.1); CHLORIDE 101 MMOL/L (99-107); CHOL/HDL RATIO 1.3 (0.00-4.99); CHOLESTEROL 187 MG/DL (0-200); CREATINE KINASE 717 U/L (39-308); CREATININE 0.71 MG/DL (0.60-1.10); GLUCOSE 102 MG/DL (70-104); HDL CHOLESTEROL 147 MG/DL (35-60); LDL CHOLESTEROL 28 MG/DL (50-100); MAGNESIUM 1.9 MG/DL (1.5-2.4); POTASSIUM 3.4 MMOL/L (3.5-5.1); SODIUM 134 MMOL/L (135-145); TOTAL CARBON DIOXIDE 22.9 MMOL/L (24-32); TOTAL PROTEIN 6.1 G/DL (6.4-8.2); TRIGLYCERIDES 74 MG/DL (20-135); eGFR > 90 ML/MIN
[2020-12-23] MEDS: propranolol 10mg tablet PO SCH ×2 (08:53→19:25)
[2020-12-23] MEDS: HYDROchlorothiazide 25mg tablet PO SCH (08:54)
[2020-12-23] MEDS: folic acid 1mg tablet PO SCH (08:54)
[2020-12-23] MEDS: heparin, porcine 5000 units/ml vial SQ SCH ×2 (08:55→19:26)
[2020-12-23] MEDS: thiamine 100mg tablet PO SCH (08:55)
[2020-12-23] MEDS: pantoprazole 40mg Tablet.DR PO SCH (08:55)
[2020-12-23] MEDS: levetiracetam inj 1,000 MG in normal saline 100ml IV soln 90 ML IV SCH (08:56)
[2020-12-23] MEDS: vancomycin/NS 1 GM ADD-VANTAGE 250 ML IV SCH ×2 (08:56→16:09)
[2020-12-23] MEDS: potassium Cl 20 mEq SR tablet PO PRN ×2 (09:53→19:25)
[2020-12-23] MEDS: LORazepam 2 mg/ml vial IV PRN ×3 (10:53→23:49)
[2020-12-23 11:00] VITALS: BP 134/86
--- NOTE | 2020-12-23 11:00 | NUR ---
patient very anxious and jittery, ativan given
--- NOTE | 2020-12-23 13:00 | NUR ---
patient appears calm and quiet, in no acute distress.
[2020-12-23 15:00] VITALS: BP 113/78
[2020-12-23] MEDS ORDERED: iohexol 300mg/ml 100ml inj. ONE (15:04)
[2020-12-23] MEDS: clindamycin 600mg/D5W 50ml 50 ML IV SCH ×2 (17:48→19:24)
[2020-12-23 18:00] VITALS: BP 157/90
[2020-12-23 22:00] VITALS: BP 145/85
[2020-12-23] MEDS ORDERED: VANCOMYCIN LEVEL IV ONE (23:30)
[2020-12-24] MEDS: VANCOmycin 1250MG/NS 250ml Bag 250 ML IV SCH ×3 (01:11→17:30)
[2020-12-24 02:00] VITALS: BP 120/86
[2020-12-24] MEDS: dextrose 5%-normal saline 1,000 ML IV SCH ×3 (02:00→23:17)
[2020-12-24] MEDS: clindamycin 600mg/D5W 50ml 50 ML IV SCH ×4 (03:10→19:30)
[2020-12-24] MEDS: LORazepam 2 mg/ml vial IV PRN ×4 (03:40→21:54)
[2020-12-24 06:00] VITALS: BP 145/111
[2020-12-24 07:11] LABS: BASOPHILS % (AUTO) 0.6 % (0-1); EOSINOPHILS # (AUTO) 0.2 X10'3 (0-0.9); EOSINOPHILS % (AUTO) 4.8 % (0-6); HEMATOCRIT 40.7 % (42.0-52.0); HEMOGLOBIN 13.6 g/dl (14.0-17.9); LYMPHOCYTES # (AUTO) 0.7 X10'3 (1.1-4.8); LYMPHOCYTES % (AUTO) 15.6 % (21-51); MEAN CORPUSCULAR HEMOGLOBIN 31.2 PG (27.0-31.0); MEAN CORPUSCULAR HGB CONC 33.5 g/dL (33.0-36.5); MEAN CORPUSCULAR VOLUME 93.3 FL (78-98); MEAN PLATELET VOLUME 8.6 FL (7.4-10.4); MONOCYTES # (AUTO) 0.4 X10'3 (0-0.9); MONOCYTES % (AUTO) 9.3 % (2-12); NEUTROPHILS % (AUTO) 69.7 % (42-75); PLATELET COUNT 160 X10'3 (140-440); RED BLOOD COUNT 4.36 X10'6 (4.70-6.10); RED CELL DISTRIBUTION WIDTH 14.7 % (11.5-14.5); WHITE BLOOD COUNT 4.3 X10'3 (4.5-11.0)
[2020-12-24 07:40] LABS: ALANINE AMINOTRANSFERASE 57 U/L (12-78); ALBUMIN 2.9 G/DL (3.4-5.0); ALBUMIN/GLOBULIN RATIO 0.9 (1.1-1.5); ALKALINE PHOSPHATASE 58 IU/L (46-116); AMYLASE 44 U/L (25-115); ANION GAP 12 (8-16); ASPARTATE AMINO TRANSFERASE 59 U/L (10-37); BILIRUBIN,TOTAL 0.5 MG/DL (0.1-1.0); BLOOD UREA NITROGEN 9 MG/DL (7-18); BUN/CREATININE RATIO 13.4 (5.4-32.0); CALCIUM 8.6 MG/DL (8.5-10.1); CHLORIDE 103 MMOL/L (99-107); CREATINE KINASE 385 U/L (39-308); CREATININE 0.67 MG/DL (0.60-1.10); GLUCOSE 103 MG/DL (70-104); MAGNESIUM 1.7 MG/DL (1.5-2.4); PHOSPHORUS 3.4 MG/DL (2.3-4.5); POTASSIUM 3.6 MMOL/L (3.5-5.1); SODIUM 137 MMOL/L (135-145); TOTAL CARBON DIOXIDE 22.2 MMOL/L (24-32); TOTAL PROTEIN 6.2 G/DL (6.4-8.2); eGFR > 90 ML/MIN
[2020-12-24] MEDS: piperacillin/tazo 3.375gm/50ml 50 ML IV SCH ×2 (07:44→17:30)
[2020-12-24] MEDS: propranolol 10mg tablet PO SCH ×2 (07:55→19:28)
[2020-12-24] MEDS: HYDROchlorothiazide 25mg tablet PO SCH (07:55)
[2020-12-24] MEDS: pantoprazole 40mg Tablet.DR PO SCH (07:56)
[2020-12-24] MEDS: heparin, porcine 5000 units/ml vial SQ SCH ×2 (07:56→19:29)
[2020-12-24] MEDS: folic acid 1mg tablet PO SCH (07:56)
[2020-12-24] MEDS: thiamine 100mg tablet PO SCH (07:56)
[2020-12-24] MEDS: K and/or MAG REPLACEMENT MC SCH ×2 (08:28→20:00)
[2020-12-24 11:00] VITALS: BP 127/95
[2020-12-24] MEDS: morphine 2 MG/ML inj. syringe IV PRN ×2 (13:00→17:39)
[2020-12-24 15:00] VITALS: BP 134/95
--- NOTE | 2020-12-24 16:35 | NUR ---
Transferred to [place] [id number] [address] by bed , remains on restraints, condition stable.
[2020-12-24 18:00] VITALS: BP 160/98
--- NOTE | 2020-12-24 18:33 | NUR ---
Patient in room PCU 3024. I have received report from Akilah TAYLOR and had the opportunity to ask questions and assume patient care.
[2020-12-24] MEDS: HYDROcodone/acetaminophen 10/325mg tab PO PRN (21:53)
[2020-12-24 22:00] VITALS: BP 128/96
[2020-12-25] MEDS ORDERED: VANCOMYCIN LEVEL IV ONE (00:30)
[2020-12-25] MEDS: piperacillin/tazo 3.375gm/50ml 50 ML IV SCH ×4 (00:58→23:48)
[2020-12-25] MEDS: VANCOmycin 1250MG/NS 250ml Bag 250 ML IV SCH ×2 (01:55→08:23)
[2020-12-25 02:00] VITALS: BP 149/96
[2020-12-25] MEDS: LORazepam 2 mg/ml vial IV PRN ×7 (02:08→23:19)
[2020-12-25] MEDS: HYDROcodone/acetaminophen 10/325mg tab PO PRN ×5 (02:08→23:20)
[2020-12-25 02:42] LABS: BASOPHILS % (AUTO) 0.5 % (0-1); EOSINOPHILS # (AUTO) 0.2 X10'3 (0-0.9); EOSINOPHILS % (AUTO) 3.7 % (0-6); HEMATOCRIT 41.2 % (42.0-52.0); LYMPHOCYTES # (AUTO) 0.8 X10'3 (1.1-4.8); LYMPHOCYTES % (AUTO) 18.8 % (21-51); MEAN CORPUSCULAR HEMOGLOBIN 30.8 PG (27.0-31.0); MEAN CORPUSCULAR HGB CONC 33.8 g/dL (33.0-36.5); MEAN CORPUSCULAR VOLUME 90.9 FL (78-98); MEAN PLATELET VOLUME 8.5 FL (7.4-10.4); MONOCYTES # (AUTO) 0.5 X10'3 (0-0.9); MONOCYTES % (AUTO) 11.8 % (2-12); NEUTROPHILS # (AUTO) 2.8 X10'3 (1.8-7.7); NEUTROPHILS % (AUTO) 65.2 % (42-75); PLATELET COUNT 186 X10'3 (140-440); RED BLOOD COUNT 4.54 X10'6 (4.70-6.10); RED CELL DISTRIBUTION WIDTH 14.2 % (11.5-14.5); WHITE BLOOD COUNT 4.3 X10'3 (4.5-11.0)
[2020-12-25 02:56] LABS: ALANINE AMINOTRANSFERASE 76 U/L (12-78); ALBUMIN 3.1 G/DL (3.4-5.0); ALBUMIN/GLOBULIN RATIO 0.8 (1.1-1.5); ALKALINE PHOSPHATASE 59 IU/L (46-116); ANION GAP 11 (8-16); ASPARTATE AMINO TRANSFERASE 77 U/L (10-37); BILIRUBIN,TOTAL 0.5 MG/DL (0.1-1.0); BLOOD UREA NITROGEN 7 MG/DL (7-18); BUN/CREATININE RATIO 10.4 (5.4-32.0); CHLORIDE 100 MMOL/L (99-107); CREATININE 0.67 MG/DL (0.60-1.10); GLUCOSE 94 MG/DL (70-104); POTASSIUM 3.5 MMOL/L (3.5-5.1); SODIUM 134 MMOL/L (135-145); TOTAL CARBON DIOXIDE 22.8 MMOL/L (24-32); TOTAL PROTEIN 6.8 G/DL (6.4-8.2); eGFR > 90 ML/MIN
[2020-12-25 02:58] LABS: AMYLASE 48 U/L (25-115); CREATINE KINASE 254 U/L (39-308); MAGNESIUM 1.5 MG/DL (1.5-2.4); PHOSPHORUS 3.7 MG/DL (2.3-4.5); VANCOMYCIN,TROUGH 13.4 UG/ML (6.0-14.0)
[2020-12-25] MEDS: clindamycin 600mg/D5W 50ml 50 ML IV SCH ×4 (03:14→20:05)
--- NOTE | 2020-12-25 06:22 | NUR ---
Patient in room PCU 3024. I have received report from Kristy TAYLOR and had the opportunity to ask questions and assume patient care.
[2020-12-25 07:00] VITALS: BP 123/87
--- NOTE | 2020-12-25 07:07 | NUR ---
Problems reprioritized. Patient report given, questions answered & plan of care reviewed with Giulia TAYLOR.
[2020-12-25] MEDS: K and/or MAG REPLACEMENT MC SCH ×2 (08:00→20:00)
[2020-12-25] MEDS: HYDROchlorothiazide 25mg tablet PO SCH (08:15)
[2020-12-25] MEDS: pantoprazole 40mg Tablet.DR PO SCH (08:15)
[2020-12-25] MEDS: thiamine 100mg tablet PO SCH (08:15)
[2020-12-25] MEDS: folic acid 1mg tablet PO SCH (08:16)
[2020-12-25] MEDS: propranolol 10mg tablet PO SCH ×2 (08:16→20:06)
[2020-12-25] MEDS: heparin, porcine 5000 units/ml vial SQ SCH ×2 (08:17→20:06)
[2020-12-25] MEDS ORDERED: iohexol 300mg/ml 100ml inj. ONE (09:57)
[2020-12-25] MEDS: morphine 2 MG/ML inj. syringe IV PRN (09:59)
[2020-12-25 11:00] VITALS: BP 122/91
--- NOTE | 2020-12-25 12:28 | NUR ---
Dr. Toth at bedside with patient and nurse. New orders Keppra 1000mg 2xdaily, first dose now.Abigail guzman was called and confirmed pt was on Keppra 500mg 2x daily. Patient had no refills since Aug 2020. will be notified. We will continue with antibiotics and support. Will continue to monitor. Addendum: 12/25/20 at 1827 by Giulia Mandujano RN OK to DC fluids.
[2020-12-25] MEDS: levetiracetam 250mg tablet PO SCH ×2 (12:45→20:05)
[2020-12-25 15:00] VITALS: BP 138/97
--- NOTE | 2020-12-25 15:30 | NUR ---
Patient called for help due to IV line falling out and bleeding. Patient is disturbed and and mentions that he has PTSD and that when sleeping he tends to be violent and body reacts in a way that a normal personal does not. Patient explains [employer] and combative. Will continue to monitor. For IV antibiotics we will hold IV until a line is established, [facility] and [facility] have been called. Charge nathen has tried and 2 other RNS.
[2020-12-25] MEDS: VANCOMYCIN 1,500MG inj. 1,500 MG in normal saline 500ml IV soln 300 ML IV SCH (17:30)
[2020-12-25 18:00] VITALS: BP 125/85
--- NOTE | 2020-12-25 18:08 | NUR ---
Problems reprioritized. Patient report given, questions answered & plan of care reviewed with Kristy TAYLOR.
--- NOTE | 2020-12-25 18:48 | NUR ---
Patient in room PCU 3024. I have received report from Giulia TAYLOR and had the opportunity to ask questions and assume patient care.
[2020-12-25 22:00] VITALS: BP 143/87
[2020-12-26] MEDS: clindamycin 600mg/D5W 50ml 50 ML IV SCH ×4 (01:25→19:36)
[2020-12-26] MEDS: VANCOMYCIN 1,500MG inj. 1,500 MG in normal saline 500ml IV soln 300 ML IV SCH ×3 (01:26→17:00)
[2020-12-26 02:00] VITALS: BP 132/97
[2020-12-26 06:44] LABS: BASOPHILS % (AUTO) 0.7 % (0-1); EOSINOPHILS # (AUTO) 0.2 X10'3 (0-0.9); EOSINOPHILS % (AUTO) 3.4 % (0-6); HEMATOCRIT 44.4 % (42.0-52.0); HEMOGLOBIN 15.2 g/dl (14.0-17.9); LYMPHOCYTES # (AUTO) 1.1 X10'3 (1.1-4.8); LYMPHOCYTES % (AUTO) 24.8 % (21-51); MEAN CORPUSCULAR HEMOGLOBIN 31.2 PG (27.0-31.0); MEAN CORPUSCULAR HGB CONC 34.2 g/dL (33.0-36.5); MEAN CORPUSCULAR VOLUME 91.3 FL (78-98); MEAN PLATELET VOLUME 8.4 FL (7.4-10.4); MONOCYTES # (AUTO) 0.6 X10'3 (0-0.9); MONOCYTES % (AUTO) 14.3 % (2-12); NEUTROPHILS # (AUTO) 2.5 X10'3 (1.8-7.7); NEUTROPHILS % (AUTO) 56.8 % (42-75); PLATELET COUNT 190 X10'3 (140-440); RED BLOOD COUNT 4.86 X10'6 (4.70-6.10); RED CELL DISTRIBUTION WIDTH 14.5 % (11.5-14.5); WHITE BLOOD COUNT 4.4 X10'3 (4.5-11.0)
[2020-12-26 07:00] VITALS: BP 144/93
[2020-12-26 07:24] LABS: ALANINE AMINOTRANSFERASE 78 U/L (12-78); ALBUMIN 3.3 G/DL (3.4-5.0); ALBUMIN/GLOBULIN RATIO 0.9 (1.1-1.5); ALKALINE PHOSPHATASE 54 IU/L (46-116); ANION GAP 13 (8-16); ASPARTATE AMINO TRANSFERASE 54 U/L (10-37); BILIRUBIN,TOTAL 0.5 MG/DL (0.1-1.0); BLOOD UREA NITROGEN 8 MG/DL (7-18); BUN/CREATININE RATIO 10.7 (5.4-32.0); CALCIUM 9.2 MG/DL (8.5-10.1); CHLORIDE 103 MMOL/L (99-107); CREATININE 0.75 MG/DL (0.60-1.10); GLUCOSE 89 MG/DL (70-104); MAGNESIUM 1.9 MG/DL (1.5-2.4); POTASSIUM 3.7 MMOL/L (3.5-5.1); SODIUM 138 MMOL/L (135-145); TOTAL CARBON DIOXIDE 22.1 MMOL/L (24-32); eGFR > 90 ML/MIN
--- NOTE | 2020-12-26 07:38 | NUR ---
Problems reprioritized. Patient report given, questions answered & plan of care reviewed with Connie TAYLOR.
[2020-12-26] MEDS: K and/or MAG REPLACEMENT MC SCH ×2 (08:00→19:37)
[2020-12-26] MEDS: LORazepam 2 mg/ml vial IV PRN ×4 (08:25→21:46)
[2020-12-26] MEDS: HYDROchlorothiazide 25mg tablet PO SCH (08:26)
[2020-12-26] MEDS: levetiracetam 250mg tablet PO SCH ×2 (08:27→19:33)
[2020-12-26] MEDS: pantoprazole 40mg Tablet.DR PO SCH (08:27)
[2020-12-26] MEDS: propranolol 10mg tablet PO SCH ×2 (08:27→19:33)
[2020-12-26] MEDS: folic acid 1mg tablet PO SCH (08:27)
[2020-12-26] MEDS: HYDROcodone/acetaminophen 10/325mg tab PO PRN ×3 (08:29→19:33)
[2020-12-26] MEDS: thiamine 100mg tablet PO SCH (08:30)
[2020-12-26] MEDS: heparin, porcine 5000 units/ml vial SQ SCH ×2 (08:30→19:36)
[2020-12-26 11:00] VITALS: BP 133/101
--- NOTE | 2020-12-26 14:18 | NUR ---
Patient in room PCU 3024. I have received report from Kristy TAYLOR and had the opportunity to ask questions and assume patient care.
[2020-12-26] MEDS ORDERED: VANCOMYCIN LEVEL IV ONE (16:30)
--- NOTE | 2020-12-26 17:23 | NUR ---
Paged Dr. Toth regarding vanco levels. PAGER ID: [phone] MESSAGE: [phone] Clark Joseph. Vanco trough 27.0. I am holding 1700 Vanco. [facility] Connie [phone]
[2020-12-26 18:00] VITALS: BP 153/93
--- NOTE | 2020-12-26 18:16 | NUR ---
Problems reprioritized. Patient report given, questions answered & plan of care reviewed with Keith TAYLOR. Stable at transfer of care.
[2020-12-26] MEDS: morphine 2 MG/ML inj. syringe IV PRN (21:50)
[2020-12-26 22:00] VITALS: BP 141/88
[2020-12-27 02:00] VITALS: BP 138/95
[2020-12-27] MEDS: clindamycin 600mg/D5W 50ml 50 ML IV SCH ×3 (02:06→15:07)
[2020-12-27] MEDS: LORazepam 2 mg/ml vial IV PRN ×6 (02:06→17:42)
[2020-12-27] MEDS: HYDROcodone/acetaminophen 10/325mg tab PO PRN ×2 (02:07→14:52)
[2020-12-27] MEDS: morphine 2 MG/ML inj. syringe IV PRN ×3 (03:19→12:50)
--- NOTE | 2020-12-27 06:20 | NUR ---
report given to and disccued with CLAUDIA Rosales.
--- NOTE | 2020-12-27 06:40 | NUR ---
Patient in room PCU 3024. I have received report from Keith TAYLOR and had the opportunity to ask questions and assume patient care.
[2020-12-27 07:00] VITALS: BP 130/91
[2020-12-27] MEDS ORDERED: [UNRECOGNIZED DRUG - REMARK] IV ONE (07:00)
[2020-12-27] MEDS: K and/or MAG REPLACEMENT MC SCH (08:00)
[2020-12-27] MEDS: propranolol 10mg tablet PO SCH (08:26)
[2020-12-27] MEDS: heparin, porcine 5000 units/ml vial SQ SCH (08:26)
[2020-12-27] MEDS: HYDROchlorothiazide 25mg tablet PO SCH (08:26)
[2020-12-27] MEDS: levetiracetam 250mg tablet PO SCH (08:26)
[2020-12-27] MEDS: thiamine 100mg tablet PO SCH (08:27)
[2020-12-27] MEDS: folic acid 1mg tablet PO SCH (08:27)
[2020-12-27] MEDS: pantoprazole 40mg Tablet.DR PO SCH (08:27)
[2020-12-27 08:32] LABS: BASOPHILS % (AUTO) 0.6 % (0-1); EOSINOPHILS # (AUTO) 0.2 X10'3 (0-0.9); EOSINOPHILS % (AUTO) 3.4 % (0-6); HEMATOCRIT 47.5 % (42.0-52.0); HEMOGLOBIN 15.9 g/dl (14.0-17.9); LYMPHOCYTES # (AUTO) 1.4 X10'3 (1.1-4.8); LYMPHOCYTES % (AUTO) 29.7 % (21-51); MEAN CORPUSCULAR HEMOGLOBIN 31.1 PG (27.0-31.0); MEAN CORPUSCULAR HGB CONC 33.4 g/dL (33.0-36.5); MEAN CORPUSCULAR VOLUME 92.9 FL (78-98); MEAN PLATELET VOLUME 8.1 FL (7.4-10.4); MONOCYTES # (AUTO) 0.7 X10'3 (0-0.9); MONOCYTES % (AUTO) 14.3 % (2-12); NEUTROPHILS # (AUTO) 2.5 X10'3 (1.8-7.7); PLATELET COUNT 209 X10'3 (140-440); RED BLOOD COUNT 5.11 X10'6 (4.70-6.10); RED CELL DISTRIBUTION WIDTH 14.8 % (11.5-14.5); WHITE BLOOD COUNT 4.8 X10'3 (4.5-11.0)
[2020-12-27 08:51] LABS: ALANINE AMINOTRANSFERASE 80 U/L (12-78); ALBUMIN 3.4 G/DL (3.4-5.0); ALBUMIN/GLOBULIN RATIO 0.9 (1.1-1.5); ALKALINE PHOSPHATASE 57 IU/L (46-116); ANION GAP 11 (8-16); ASPARTATE AMINO TRANSFERASE 47 U/L (10-37); BILIRUBIN,TOTAL 0.5 MG/DL (0.1-1.0); BLOOD UREA NITROGEN 12 MG/DL (7-18); CALCIUM 9.5 MG/DL (8.5-10.1); CHLORIDE 98 MMOL/L (99-107); GLUCOSE 99 MG/DL (70-104); PHOSPHORUS 4.2 MG/DL (2.3-4.5); POTASSIUM 3.5 MMOL/L (3.5-5.1); SODIUM 135 MMOL/L (135-145); TOTAL CARBON DIOXIDE 25.9 MMOL/L (24-32); TOTAL PROTEIN 7.1 G/DL (6.4-8.2); eGFR > 90 ML/MIN
[2020-12-27] MEDS ORDERED: VANCOmycin 1250MG/NS 250ml Bag 250 ML IV SCH (09:00)
[2020-12-27 11:00] VITALS: BP 122/90
[2020-12-27 15:00] VITALS: BP 146/71
--- NOTE | 2020-12-27 15:18 | NUR ---
Initial: Pt admit w/ etoh w/d and seizure possibly r/t w/d per MD note; etoh 0.1 on admit. Pt hx non-compliant w/ seizure meds and continued etoh abuse per EMR. PO 75% avg heart healthy diet meeting needs. Receiving thiamin, folic for etoh hx. LBM 12/25. No nutrition concerns at this time. Will continue to monitor. Rec: 1. continue heart healthy diet 2. routine bowel care 3. thiamin, folic for etoh hx per MD 4. scaled wt this admit Addendum: 12/27/20 at [address] Amended: Links added.
[2020-12-27] MEDS ORDERED: CLIN300C3 PO (16:05)
[2020-12-27] MEDS ORDERED: KEP500T PO (16:05)
[2020-12-27] MEDS ORDERED: HYDR-3965 PO (16:05)
[2020-12-27] MEDS ORDERED: PROP10TA10 PO (16:05)
[2020-12-27] MEDS ORDERED: THIA50TA10 PO (16:05)
[2020-12-27] MEDS ORDERED: LORA-269 PO (16:05)
[2020-12-27] MEDS ORDERED: MULT-1074 PO (16:05)
--- NOTE | 2020-12-27 16:57 | NUR ---
Wound care picture taken 12/26/20 1730. Addendum: 12/27/20 at 1659 by Yvan Ramos RN Amended: Links added.
--- NOTE | 2020-12-27 18:06 | NUR ---
Problems reprioritized. Patient report given, questions answered & plan of care reviewed with Daneil RN. Patient stable at transfer of care.
--- NOTE | 2020-12-27 18:28 | NUR ---
Patient in room PCU 3024. I have received report from Connie TAYLOR and had the opportunity to ask questions and assume patient care.
[2020-12-27 19:00] VITALS: BP 124/92
--- NOTE | 2020-12-27 20:15 | NUR ---
Patient discharged and left at 1999 by cab. All personal belongings left with patient. Vitals stable. Discharge instructions reviewed with patient. Patient had right arm wound dressing on and did not want it removed for a picture to be taken. Patient left floor via wheelchair.
[2020-12-28] MEDS ORDERED: VANCOMYCIN LEVEL IV ONE (08:30)
== END 2020-12-27 20:00 | disposition home or self-care (01) | DRG 383 ==
LOC: ER 00:55 → ED HOLD 09:57 → PCU 3S 15:32
PROVIDERS: ADMIT Family Medicine; ATTEND Family Medicine
PROC: BP2T1ZZ Computerized Tomography (CT Scan) of Right Upper Extremity using Low Osmolar Contrast (ICD-10-PCS; principal; 2020-12-23)
PROC: BP2T1ZZ Computerized Tomography (CT Scan) of Right Upper Extremity using Low Osmolar Contrast (ICD-10-PCS; 2020-12-25)
DX: L03.113 Cellulitis of right upper limb (principal); M62.82 Rhabdomyolysis; G40.909 Epilepsy, unspecified, not intractable, without status epilepticus; F10.230 Alcohol dependence with withdrawal, uncomplicated; I10 Essential (primary) hypertension; K21.9 Gastro-esophageal reflux disease without esophagitis; L08.9 Local infection of the skin and subcutaneous tissue, unspecified; F12.90 Cannabis use, unspecified, uncomplicated; Z20.822 Contact with and (suspected) exposure to COVID-19; X58.XXXA Exposure to other specified factors, initial encounter; S40.021A Contusion of right upper arm, initial encounter; Z82.0 Family history of epilepsy and other diseases of the nervous system; Z82.49 Family history of ischemic heart disease and other diseases of the circulatory system; Z87.891 Personal history of nicotine dependence; Z91.19 Patient's noncompliance with other medical treatment and regimen; Z71.41 Alcohol abuse counseling and surveillance of alcoholic; Z79.899 Other long term (current) drug therapy; Z91.14 Patient's other noncompliance with medication regimen; Y93.89 Activity, other specified; Y92.89 Other specified places as the place of occurrence of the external cause; Y99.8 Other external cause status
CPT/HCPCS: 36415; 71045; 73201; 76937; 80053; 80061; 80202; 80305; 80320; 81001; 82150; 82550; 82553; 82948; 83036; 83605; 83735; 84100; 84145; 85025; 85610; 87040; 87081; 87635; 93005; 93971; 96361; 96365; 96366; 96367; 96372; 96375; 97110; 97162; 97530; 99285; G0378; J1630; J1644; J1953; J2060; J2270; J2405; J2543; J2560; J3370; J3411; J3475; J3490; J7030; J7040; J7042; Q9967

== ENCOUNTER 2021-01-13 20:00 | Inpatient (IN) | payer MEDICAID ==
[~2021-01-13] VITALS: Ht 172.7 cm; Wt 80.0 kg
[~2021-01-13 20:00] MED LIST changes: +ACET-2389 PO; -CHLO25CA10 PO; +FOLI0.8T3 PO; +HYDR-3965 PO; -HYDR25TA4 PO; +HYDR25TA5 PO; +KEP500T PO; -LEVE10002 PO; -LEVE500T PO; +LORA-269 PO; +LORA10TA7 PO; +MULT-1074 PO; -MULT-1085 PO; +NALT50TA PO; +ONDA-103 PO; -ONDA4TAB6 PO; +PANT-47 PO; -PANT40TA54 PO; -PROM12.512 PO; +PROP10TA10 PO; +THIA50TA10 PO; -folic acid tablet PO; -thiamine tablet PO
[2021-01-13 21:43] LABS: BASOPHILS % (AUTO) 0.4 % (0-1); EOSINOPHILS % (AUTO) 0 % (0-6); HEMATOCRIT 46.3 % (42.0-52.0); HEMOGLOBIN 16.1 g/dl (14.0-17.9); LYMPHOCYTES # (AUTO) 0.6 X10'3 (1.1-4.8); MEAN CORPUSCULAR HEMOGLOBIN 31.9 PG (27.0-31.0); MEAN CORPUSCULAR HGB CONC 34.9 g/dL (33.0-36.5); MEAN CORPUSCULAR VOLUME 91.4 FL (78-98); MEAN PLATELET VOLUME 7.7 FL (7.4-10.4); MONOCYTES # (AUTO) 0.9 X10'3 (0-0.9); MONOCYTES % (AUTO) 8.5 % (2-12); NEUTROPHILS # (AUTO) 8.6 X10'3 (1.8-7.7); NEUTROPHILS % (AUTO) 85.1 % (42-75); PLATELET COUNT 368 X10'3 (140-440); RED BLOOD COUNT 5.06 X10'6 (4.70-6.10); RED CELL DISTRIBUTION WIDTH 15.3 % (11.5-14.5); WHITE BLOOD COUNT 10.1 X10'3 (4.5-11.0)
[2021-01-13 21:53] LABS: ALANINE AMINOTRANSFERASE 38 U/L (12-78); ALBUMIN 4.3 G/DL (3.4-5.0); ALBUMIN/GLOBULIN RATIO 1.2 (1.1-1.5); ALKALINE PHOSPHATASE 58 IU/L (46-116); ANION GAP 18 (8-16); ASPARTATE AMINO TRANSFERASE 54 U/L (10-37); BILIRUBIN,TOTAL 0.5 MG/DL (0.1-1.0); BLOOD UREA NITROGEN 7 MG/DL (7-18); BUN/CREATININE RATIO 2.8 (5.4-32.0); CALCIUM 8.9 MG/DL (8.5-10.1); CHLORIDE 97 MMOL/L (99-107); CREATININE 2.47 MG/DL (0.60-1.10); ETHANOL < 0.010 GM/DL (0.0-0.010); GLUCOSE 129 MG/DL (70-104); LIPASE 63 U/L (73-393); SODIUM 138 MMOL/L (135-145); TOTAL PROTEIN 7.8 G/DL (6.4-8.2); eGFR 29 ML/MIN
[2021-01-13 21:54] LABS: ACETAMINOPHEN < 2.0 UG/ML (10-30); POTASSIUM 3.1 MMOL/L (3.5-5.1)
[2021-01-13] MEDS ORDERED: LORazepam 2 mg/ml vial IV ONE ×2 (21:55→23:30)
[2021-01-13] MEDS ORDERED: normal saline 1000ML IV soln IVB ONE (22:25)
[2021-01-13] MEDS ORDERED: normal saline 1000ml 1,000 ML IV ONE (22:55)
[2021-01-13 23:05] LABS: URINE AMPHETAMINE SCREEN NEGATIVE (Neg); URINE BARBITUATE SCREEN POSITIVE (Neg); URINE BENZODIAZEPINES SCREEN POSITIVE (Neg); URINE CANNABINOID SCREEN NEGATIVE (Neg); URINE COCAINE SCREEN NEGATIVE (Neg); URINE METHADONE SCREEN NEGATIVE (Neg); URINE OPIATE SCREEN NEGATIVE (Neg); URINE PHENCYCLIDINE SCREEN NEGATIVE (Neg)
[2021-01-13 23:12] LABS: ALBUMIN 4.1 G/DL (3.4-5.0); ANION GAP 13 (8-16); BLOOD UREA NITROGEN 6 MG/DL (7-18); BUN/CREATININE RATIO 2.6 (5.4-32.0); CALCIUM 8.5 MG/DL (8.5-10.1); CHLORIDE 101 MMOL/L (99-107); CREATININE 2.33 MG/DL (0.60-1.10); GLUCOSE 123 MG/DL (70-104); SODIUM 140 MMOL/L (135-145); TOTAL CARBON DIOXIDE 25.7 MMOL/L (24-32); eGFR 31 ML/MIN
[2021-01-13 23:13] LABS: POTASSIUM 2.7 MMOL/L (3.5-5.1)
[2021-01-13 23:15] LABS: CLARITY,URINE SLIGHTLY CLOUDY (Clear); GLUCOSE, URINE NEGATIVE (Neg); KETONES,URINE >=80 mg/dl (Neg); LEUKOCYTE ESTERASE ,URINE NEGATIVE (Neg); NITRITES, URINE NEGATIVE (Neg); OCCULT BLOOD,URINE TRACE-INTACT (Neg); PH,URINE 6.5 (4.8-8.0); PROTEIN,URINE 100 mg/dl (Neg)
[2021-01-13 23:21] LABS: COLOR,URINE DARK YELLOW (Yellow); UA COLLECTION TYPE CLN CATCH MIDSTREAM
[2021-01-13 23:22] LABS: MUCUS STRANDS MANY /LPF (Neg)
[2021-01-13 23:23] LABS: SQUAMOUS EPITHELIAL CELL,UR FEW /LPF (FEW); WBC,URINE 0-4 /HPF (0-4)
[2021-01-13 23:24] LABS: BACTERIA,URINE NONE SEEN /HPF (Neg); RBC,URINE 0-2 /HPF (0-2)
[2021-01-13] MEDS: potassium Cl 10 mEq/100mL bag IV SCH (23:30)
[2021-01-14] MEDS ORDERED: magnesium Cl slow-release 64mg tablet PO PRN (00:45)
[2021-01-14] MEDS ORDERED: haloperidol lactate 5mg/ml inj IM PRN (00:45)
[2021-01-14] MEDS ORDERED: acetaminophen 325mg tablet PO PRN ×2 (00:45)
[2021-01-14] MEDS ORDERED: magnesium 4gm in 100ml NS 100 ML IV PRN (00:45)
[2021-01-14] MEDS ORDERED: haloperidol 5mg tablet PO PRN (00:45)
[2021-01-14] MEDS ORDERED: magnesium 2GM in 50ml NS 50 ML IV PRN (00:45)
[2021-01-14] MEDS ORDERED: potassium Cl 20 mEq SR tablet PO PRN (00:45)
[2021-01-14] MEDS ORDERED: dextrose 50%-water 50ml dispensing syringe IV PRN (00:45)
[2021-01-14] MEDS ORDERED: potassium Cl 40MEQ/1/2NS 520ml 520 ML IV PRN ×2 (00:45)
[2021-01-14] MEDS: potassium Cl 10 mEq/100mL bag IV SCH (01:30)
[2021-01-14] MEDS: normal saline 1000ml 1,000 ML IV SCH ×3 (01:30→20:45)
--- NOTE | 2021-01-14 01:36 | NUR ---
PT SLEEPING, VITALS UPDATED, 2ND K RIDER INFUSING. NO DISTRESS NOTED. WILL CONTINUE TO MONITOR.
[2021-01-14 03:13] LABS: BASOPHILS % (AUTO) 0.4 % (0-1); EOSINOPHILS % (AUTO) 0 % (0-6); HEMATOCRIT 41.6 % (42.0-52.0); HEMOGLOBIN 13.8 g/dl (14.0-17.9); LYMPHOCYTES # (AUTO) 1.1 X10'3 (1.1-4.8); LYMPHOCYTES % (AUTO) 16.4 % (21-51); MEAN CORPUSCULAR HEMOGLOBIN 30.8 PG (27.0-31.0); MEAN CORPUSCULAR HGB CONC 33.2 g/dL (33.0-36.5); MEAN CORPUSCULAR VOLUME 92.7 FL (78-98); MEAN PLATELET VOLUME 7.6 FL (7.4-10.4); MONOCYTES # (AUTO) 0.6 X10'3 (0-0.9); MONOCYTES % (AUTO) 8.6 % (2-12); NEUTROPHILS # (AUTO) 4.9 X10'3 (1.8-7.7); NEUTROPHILS % (AUTO) 74.6 % (42-75); PLATELET COUNT 268 X10'3 (140-440); RED BLOOD COUNT 4.49 X10'6 (4.70-6.10); RED CELL DISTRIBUTION WIDTH 15.7 % (11.5-14.5); WHITE BLOOD COUNT 6.5 X10'3 (4.5-11.0)
[2021-01-14 03:19] LABS: ALBUMIN 3.4 G/DL (3.4-5.0); ANION GAP 9 (8-16); BLOOD UREA NITROGEN 6 MG/DL (7-18); BUN/CREATININE RATIO 2.8 (5.4-32.0); CALCIUM 7.8 MG/DL (8.5-10.1); CHLORIDE 106 MMOL/L (99-107); CREATININE 2.11 MG/DL (0.60-1.10); GLUCOSE 110 MG/DL (70-104); POTASSIUM 3.5 MMOL/L (3.5-5.1); SODIUM 141 MMOL/L (135-145); TOTAL CARBON DIOXIDE 26.2 MMOL/L (24-32); eGFR 35 ML/MIN
[2021-01-14 03:21] LABS: OSMOLALITY 319 MOSM/K (280-300)
[2021-01-14] MEDS ORDERED: ACETAMINOPHEN PO PRN (06:25)
[2021-01-14] MEDS ORDERED: ondansetron 4mg rapidly disintigrating tab PO PRN (06:40)
[2021-01-14] MEDS: folic acid 1mg tablet PO SCH (08:00)
[2021-01-14] MEDS: pantoprazole 40mg Tablet.DR PO SCH (08:00)
[2021-01-14] MEDS: propranolol 10mg tablet PO SCH ×2 (08:00→20:34)
[2021-01-14] MEDS: K and/or MAG REPLACEMENT MC SCH ×2 (08:00→20:00)
[2021-01-14] MEDS: heparin, porcine 5000 units/ml vial SQ SCH ×2 (08:00→20:35)
[2021-01-14] MEDS: thiamine inj. 100 MG in normal saline 100ml IV soln 100 ML IV SCH (08:00)
[2021-01-14] MEDS: Levetiracetam-NS 500mg/100ml 100 ML IV SCH ×2 (08:24→21:38)
[2021-01-14] MEDS: ondansetron/PF 4mg/2ml inj IV PRN ×2 (11:11→20:59)
[2021-01-14] MEDS: metoclopramide 5 mg/ml inj IV PRN (14:05)
[2021-01-14] MEDS: LORazepam 2 mg/ml vial IV PRN ×2 (14:05→23:50)
[2021-01-14 17:01] VITALS: BP 143/85
[2021-01-14 19:00] VITALS: BP 127/92
[2021-01-14 23:00] VITALS: BP 146/98
[2021-01-15] MEDS: normal saline 1000ml 1,000 ML IV SCH ×2 (02:34→16:31)
[2021-01-15 07:14] VITALS: BP 149/98
[2021-01-15] MEDS: K and/or MAG REPLACEMENT MC SCH ×2 (08:00→20:00)
[2021-01-15] MEDS: heparin, porcine 5000 units/ml vial SQ SCH ×2 (08:26→20:01)
[2021-01-15] MEDS: pantoprazole 40mg Tablet.DR PO SCH (08:27)
[2021-01-15] MEDS: thiamine inj. 100 MG in normal saline 100ml IV soln 100 ML IV SCH (08:27)
[2021-01-15] MEDS: folic acid 1mg tablet PO SCH (08:27)
[2021-01-15] MEDS: propranolol 10mg tablet PO SCH ×2 (08:27→20:02)
[2021-01-15] MEDS: Levetiracetam-NS 500mg/100ml 100 ML IV SCH ×2 (08:28→19:47)
[2021-01-15] MEDS: LORazepam 2 mg/ml vial IV PRN ×5 (08:50→23:18)
[2021-01-15 09:46] LABS: BASOPHILS % (AUTO) 0.6 % (0-1); EOSINOPHILS # (AUTO) 0.1 X10'3 (0-0.9); EOSINOPHILS % (AUTO) 2.1 % (0-6); HEMATOCRIT 41.8 % (42.0-52.0); HEMOGLOBIN 14.1 g/dl (14.0-17.9); LYMPHOCYTES # (AUTO) 1.1 X10'3 (1.1-4.8); LYMPHOCYTES % (AUTO) 26.1 % (21-51); MEAN CORPUSCULAR HEMOGLOBIN 31.5 PG (27.0-31.0); MEAN CORPUSCULAR HGB CONC 33.7 g/dL (33.0-36.5); MEAN CORPUSCULAR VOLUME 93.6 FL (78-98); MEAN PLATELET VOLUME 7.7 FL (7.4-10.4); MONOCYTES # (AUTO) 0.3 X10'3 (0-0.9); MONOCYTES % (AUTO) 7.6 % (2-12); NEUTROPHILS # (AUTO) 2.7 X10'3 (1.8-7.7); NEUTROPHILS % (AUTO) 63.6 % (42-75); PLATELET COUNT 233 X10'3 (140-440); RED BLOOD COUNT 4.47 X10'6 (4.70-6.10); RED CELL DISTRIBUTION WIDTH 14.8 % (11.5-14.5); WHITE BLOOD COUNT 4.3 X10'3 (4.5-11.0)
[2021-01-15 09:59] LABS: ALANINE AMINOTRANSFERASE 33 U/L (12-78); ALBUMIN 3.2 G/DL (3.4-5.0); ALBUMIN/GLOBULIN RATIO 1.1 (1.1-1.5); ALKALINE PHOSPHATASE 48 IU/L (46-116); ANION GAP 12 (8-16); ASPARTATE AMINO TRANSFERASE 37 U/L (10-37); BILIRUBIN,TOTAL 0.6 MG/DL (0.1-1.0); BLOOD UREA NITROGEN 3 MG/DL (7-18); BUN/CREATININE RATIO 2.2 (5.4-32.0); CALCIUM 7.7 MG/DL (8.5-10.1); CHLORIDE 102 MMOL/L (99-107); CREATININE 1.35 MG/DL (0.60-1.10); GLUCOSE 115 MG/DL (70-104); MAGNESIUM 1.8 MG/DL (1.5-2.4); SODIUM 138 MMOL/L (135-145); TOTAL CARBON DIOXIDE 24.4 MMOL/L (24-32); TOTAL PROTEIN 6.1 G/DL (6.4-8.2); eGFR 58 ML/MIN
[2021-01-15] MEDS: potassium Cl 20 mEq SR tablet PO PRN ×2 (10:35→13:14)
[2021-01-15 11:53] VITALS: BP 142/97
[2021-01-15] MEDS: metoclopramide 5 mg/ml inj IV PRN ×2 (13:14→19:43)
[2021-01-15 16:25] VITALS: BP 121/85
[2021-01-15] MEDS: ondansetron/PF 4mg/2ml inj IV PRN (17:16)
[2021-01-15 18:00] VITALS: BP 114/83
--- NOTE | 2021-01-15 18:45 | NUR ---
Patient in room PCU 3021. I have received report from Belkys TAYLOR and had the opportunity to ask questions and assume patient care.
[2021-01-15 23:00] VITALS: BP 124/86
[2021-01-16] MEDS ORDERED: LORazepam 2 mg/ml vial IV PRN (00:45)
[2021-01-16 02:00] VITALS: BP 143/99
[2021-01-16] MEDS: LORazepam 1 MG tablet PO PRN ×3 (02:01→08:28)
[2021-01-16] MEDS: ondansetron/PF 4mg/2ml inj IV PRN ×4 (02:06→23:58)
[2021-01-16] MEDS: normal saline 1000ml 1,000 ML IV SCH ×3 (02:45→23:58)
--- NOTE | 2021-01-16 05:39 | NUR ---
Have requested that pt. use the urinal to void in as he goes in the toilet when he has to pass gas/stool. Twice this shift he states that he feels he is not going much, first time bladder scan revealed 56cc, just scanned again, only 26cc in bladder.
--- NOTE | 2021-01-16 06:35 | NUR ---
Patient in room U 3021. I have received report from Loyda TAYLOR and had the opportunity to ask questions and assume patient care.Patient sleeping in bed in no acute distress. Sitter in room.
[2021-01-16 07:00] VITALS: BP 142/99
[2021-01-16] MEDS: K and/or MAG REPLACEMENT MC SCH ×2 (08:00→19:08)
[2021-01-16 08:17] LABS: EOSINOPHILS # (AUTO) 0.3 X10'3 (0-0.9); EOSINOPHILS % (AUTO) 5.7 % (0-6); HEMATOCRIT 43.4 % (42.0-52.0); HEMOGLOBIN 14.7 g/dl (14.0-17.9); LYMPHOCYTES # (AUTO) 1.3 X10'3 (1.1-4.8); LYMPHOCYTES % (AUTO) 27.2 % (21-51); MEAN CORPUSCULAR HEMOGLOBIN 31.7 PG (27.0-31.0); MEAN CORPUSCULAR HGB CONC 33.8 g/dL (33.0-36.5); MEAN CORPUSCULAR VOLUME 93.8 FL (78-98); MEAN PLATELET VOLUME 8.5 FL (7.4-10.4); MONOCYTES # (AUTO) 0.4 X10'3 (0-0.9); MONOCYTES % (AUTO) 8.6 % (2-12); NEUTROPHILS # (AUTO) 2.8 X10'3 (1.8-7.7); NEUTROPHILS % (AUTO) 57.5 % (42-75); PLATELET COUNT 233 X10'3 (140-440); RED BLOOD COUNT 4.63 X10'6 (4.70-6.10); RED CELL DISTRIBUTION WIDTH 14.8 % (11.5-14.5); WHITE BLOOD COUNT 4.8 X10'3 (4.5-11.0)
[2021-01-16 08:22] LABS: ALANINE AMINOTRANSFERASE 35 U/L (12-78); ALBUMIN 3.7 G/DL (3.4-5.0); ALBUMIN/GLOBULIN RATIO 1.2 (1.1-1.5); ALKALINE PHOSPHATASE 47 IU/L (46-116); ANION GAP 12 (8-16); ASPARTATE AMINO TRANSFERASE 26 U/L (10-37); BILIRUBIN,TOTAL 0.7 MG/DL (0.1-1.0); BLOOD UREA NITROGEN 4 MG/DL (7-18); BUN/CREATININE RATIO 4.3 (5.4-32.0); CALCIUM 8.7 MG/DL (8.5-10.1); CHLORIDE 106 MMOL/L (99-107); CREATININE 0.93 MG/DL (0.60-1.10); GLUCOSE 89 MG/DL (70-104); MAGNESIUM 1.9 MG/DL (1.5-2.4); POTASSIUM 3.6 MMOL/L (3.5-5.1); SODIUM 141 MMOL/L (135-145); TOTAL CARBON DIOXIDE 22.8 MMOL/L (24-32); TOTAL PROTEIN 6.9 G/DL (6.4-8.2); eGFR 89 ML/MIN
[2021-01-16] MEDS: propranolol 10mg tablet PO SCH ×2 (08:27→19:08)
[2021-01-16] MEDS: thiamine 100mg tablet PO SCH (08:27)
[2021-01-16] MEDS: heparin, porcine 5000 units/ml vial SQ SCH ×2 (08:27→19:08)
[2021-01-16] MEDS: pantoprazole 40mg Tablet.DR PO SCH (08:27)
[2021-01-16] MEDS: folic acid 1mg tablet PO SCH (08:27)
[2021-01-16] MEDS: Levetiracetam-NS 500mg/100ml 100 ML IV SCH ×2 (08:43→19:09)
[2021-01-16 11:00] VITALS: BP 150/90
[2021-01-16 15:00] VITALS: BP 154/98
--- NOTE | 2021-01-16 15:20 | NUR ---
PAGER ID: [phone] MESSAGE: [phone] Opal . Patient is not being held for mental health, IT is suggested that he enter substance abuse and that he is DT from alcohol abuse. DC will be at your discretion. Mental health report should be done by around 1630. Jessy
[2021-01-16] MEDS ORDERED: hydrALAZINE 25 MG tablet PO PRN (16:50)
[2021-01-16] MEDS: metoclopramide 5 mg/ml inj IV PRN ×2 (17:00→23:58)
[2021-01-16] MEDS: lisinopril 10 MG tablet PO SCH (17:01)
[2021-01-16 18:00] VITALS: BP 137/106
--- NOTE | 2021-01-16 18:27 | NUR ---
Problems reprioritized. Patient report given, questions answered & plan of care reviewed with Juve TAYLOR.
--- NOTE | 2021-01-16 20:49 | NUR ---
PAGER ID: [phone] MESSAGE: [phone] Tobi locke requesting prn orders for anxiety as well as cough . Ativan seems to be on for day 5 which would be 01/18 . thanks Ricardo denny pcu [phone]
[2021-01-16 22:00] VITALS: BP 114/88
[2021-01-17 02:00] VITALS: BP 153/99
[2021-01-17] MEDS ORDERED: levetiracetam inj 500 MG in normal saline 100ml IV soln 95 ML IV SCH (04:14)
[2021-01-17 07:00] VITALS: BP 153/100
[2021-01-17 07:05] LABS: ALANINE AMINOTRANSFERASE 27 U/L (12-78); ALBUMIN 3.5 G/DL (3.4-5.0); ALBUMIN/GLOBULIN RATIO 1.1 (1.1-1.5); ALKALINE PHOSPHATASE 44 IU/L (46-116); ANION GAP 12 (8-16); ASPARTATE AMINO TRANSFERASE 18 U/L (10-37); BILIRUBIN,TOTAL 0.6 MG/DL (0.1-1.0); BLOOD UREA NITROGEN 5 MG/DL (7-18); BUN/CREATININE RATIO 6.8 (5.4-32.0); CALCIUM 8.7 MG/DL (8.5-10.1); CHLORIDE 104 MMOL/L (99-107); CREATININE 0.73 MG/DL (0.60-1.10); GLUCOSE 87 MG/DL (70-104); MAGNESIUM 1.9 MG/DL (1.5-2.4); POTASSIUM 3.2 MMOL/L (3.5-5.1); SODIUM 138 MMOL/L (135-145); TOTAL CARBON DIOXIDE 21.8 MMOL/L (24-32); TOTAL PROTEIN 6.7 G/DL (6.4-8.2); eGFR > 90 ML/MIN
[2021-01-17 07:08] LABS: BASOPHILS % (AUTO) 0.7 % (0-1); EOSINOPHILS # (AUTO) 0.3 X10'3 (0-0.9); EOSINOPHILS % (AUTO) 5.6 % (0-6); HEMATOCRIT 43.5 % (42.0-52.0); HEMOGLOBIN 14.5 g/dl (14.0-17.9); LYMPHOCYTES # (AUTO) 1.3 X10'3 (1.1-4.8); LYMPHOCYTES % (AUTO) 27.3 % (21-51); MEAN CORPUSCULAR HEMOGLOBIN 31.2 PG (27.0-31.0); MEAN CORPUSCULAR HGB CONC 33.4 g/dL (33.0-36.5); MEAN CORPUSCULAR VOLUME 93.3 FL (78-98); MEAN PLATELET VOLUME 8.5 FL (7.4-10.4); MONOCYTES # (AUTO) 0.5 X10'3 (0-0.9); MONOCYTES % (AUTO) 10.9 % (2-12); NEUTROPHILS # (AUTO) 2.6 X10'3 (1.8-7.7); NEUTROPHILS % (AUTO) 55.5 % (42-75); PLATELET COUNT 198 X10'3 (140-440); RED BLOOD COUNT 4.65 X10'6 (4.70-6.10); RED CELL DISTRIBUTION WIDTH 14.5 % (11.5-14.5); WHITE BLOOD COUNT 4.8 X10'3 (4.5-11.0)
[2021-01-17] MEDS: K and/or MAG REPLACEMENT MC SCH (08:00)
--- NOTE | 2021-01-17 09:17 | NUR ---
Page Sent to Dr. Rivera promotional table spacer PAGER ID: [phone] MESSAGE: [phone] Opal. Patient went into and out of wenkebach heart rhythm last night approximately 10 times. Patient asymptomatic and currently in sinus rhythm. Patient WD from ETOH. Jiménez [phone]
[2021-01-17] MEDS: ondansetron/PF 4mg/2ml inj IV PRN (09:24)
[2021-01-17] MEDS: thiamine 100mg tablet PO SCH (09:24)
[2021-01-17] MEDS: pantoprazole 40mg Tablet.DR PO SCH (09:24)
[2021-01-17] MEDS: folic acid 1mg tablet PO SCH (09:24)
[2021-01-17] MEDS: lisinopril 10 MG tablet PO SCH (09:25)
[2021-01-17] MEDS ORDERED: POTASSIUM BICARB 20meq eff tab 20 MEQ TABLET.EFF PO PRN ×2 (09:25→09:30)
[2021-01-17] MEDS: heparin, porcine 5000 units/ml vial SQ SCH (09:25)
[2021-01-17] MEDS: propranolol 10mg tablet PO SCH (09:26)
[2021-01-17] MEDS ORDERED: magnesium 2GM in 50ml NS 50 ML IV PRN (09:30)
[2021-01-17] MEDS ORDERED: magnesium 4gm in 100ml NS 100 ML IV PRN (09:30)
[2021-01-17] MEDS ORDERED: potassium Cl 40MEQ/1/2NS 520ml 520 ML IV PRN ×2 (09:30)
[2021-01-17 11:00] VITALS: BP 147/96
[2021-01-17] MEDS: metoclopramide 5 mg/ml inj IV PRN (14:12)
[2021-01-17 15:00] VITALS: BP 133/88
--- NOTE | 2021-01-17 17:09 | NUR ---
Patient was dc to home. PIV was removed with cannula intact. DC instructions and warning s/s were reviewed with the patient and he verbalized understanding. Patient was alert, oriented, and appropriate at time of dc. Patient picked up by mom and sister.
[2021-01-18] MEDS ORDERED: LORazepam 1 MG tablet PO PRN (00:45)
[2021-01-18] MEDS ORDERED: LORazepam 2 mg/ml vial IV PRN (00:45)
== END 2021-01-17 16:54 | disposition home or self-care (01) | DRG 425 ==
LOC: ER 20:02 → ED HOLD 01-14 00:43 → PCU 3S 01-14 15:15
PROVIDERS: ADMIT Internal Medicine; ATTEND Internal Medicine
DX: E87.6 Hypokalemia (principal); N17.9 Acute kidney failure, unspecified; N18.9 Chronic kidney disease, unspecified; F10.129 Alcohol abuse with intoxication, unspecified; Y90.9 Presence of alcohol in blood, level not specified; F10.139 Alcohol abuse with withdrawal, unspecified; G40.909 Epilepsy, unspecified, not intractable, without status epilepticus; I12.9 Hypertensive chronic kidney disease with stage 1 through stage 4 chronic kidney disease, or unspecified chronic kidney disease
CPT/HCPCS: 36415; 70450; 80048; 80053; 80305; 80320; 80329; 81001; 82948; 83605; 83690; 83735; 83930; 84132; 85025; 85610; 93005; 96365; 97161; 97530; 99285; G0378; J1644; J1953; J2060; J2405; J2765; J3411; J3480; J7030

== ENCOUNTER 2021-01-18 14:52 | Emergency (ER) | payer MEDICAID ==
[~2021-01-18] VITALS: Ht 175.3 cm; Wt 90.9 kg
[~2021-01-18 14:52] MED LIST changes: -THIA50TA10 PO
[2021-01-18] MEDS ORDERED: normal saline 1000ml 1,000 ML IV ONE ×3 (15:45→18:35)
--- NOTE | 2021-01-18 15:48 | NUR ---
PT STATES I DRANK ALOT OF VODKA CANT REMEMBER HOW MUCH. 2 8OZ BOTTLES OF HAND CONTINUOUS YARN DYEING MACHINE OPERATOR WITH ALOE, 1 160Z BOTTLE OF RUBBING ALCOHOL-ISOPROPYL ALCOHOL.
--- NOTE | 2021-01-18 15:50 | NUR ---
CALLED POISON CONTROL AND SPOKE WITH LOUIE. RECOMMENDS: ASA, TYLENOL, BLOOD ALCOHOL, URINE DRUG SCREEN, CMP, S. OSMOLYTE, CBC. IN 4-6 HRS REPEAT S.OSMOLYTE, BLOOD ALCOHOL AND CMP.
[2021-01-18 16:18] LABS: BASOPHILS % (AUTO) 0.5 % (0-1); EOSINOPHILS # (AUTO) 0.1 X10'3 (0-0.9); EOSINOPHILS % (AUTO) 2.9 % (0-6); HEMATOCRIT 44.9 % (42.0-52.0); HEMOGLOBIN 15.1 g/dl (14.0-17.9); LYMPHOCYTES # (AUTO) 1.1 X10'3 (1.1-4.8); MEAN CORPUSCULAR HEMOGLOBIN 31.2 PG (27.0-31.0); MEAN CORPUSCULAR HGB CONC 33.5 g/dL (33.0-36.5); MEAN CORPUSCULAR VOLUME 93.1 FL (78-98); MEAN PLATELET VOLUME 7.5 FL (7.4-10.4); MONOCYTES # (AUTO) 0.7 X10'3 (0-0.9); MONOCYTES % (AUTO) 13.1 % (2-12); NEUTROPHILS # (AUTO) 3.2 X10'3 (1.8-7.7); NEUTROPHILS % (AUTO) 62.5 % (42-75); PLATELET COUNT 212 X10'3 (140-440); RED BLOOD COUNT 4.82 X10'6 (4.70-6.10); RED CELL DISTRIBUTION WIDTH 14.9 % (11.5-14.5); WHITE BLOOD COUNT 5.1 X10'3 (4.5-11.0)
[2021-01-18 16:33] LABS: ALANINE AMINOTRANSFERASE 28 U/L (12-78); ALBUMIN 3.5 G/DL (3.4-5.0); ALBUMIN/GLOBULIN RATIO 1.1 (1.1-1.5); ALKALINE PHOSPHATASE 84 IU/L (46-116); ANION GAP 16 (8-16); ASPARTATE AMINO TRANSFERASE 19 U/L (10-37); BILIRUBIN,TOTAL 0.1 MG/DL (0.1-1.0); BLOOD UREA NITROGEN 14 MG/DL (7-18); BUN/CREATININE RATIO 16.7 (5.4-32.0); CALCIUM 8.5 MG/DL (8.5-10.1); CHLORIDE 110 MMOL/L (99-107); CREATININE 0.84 MG/DL (0.60-1.10); GLUCOSE 105 MG/DL (70-104); POTASSIUM 3.9 MMOL/L (3.5-5.1); SODIUM 147 MMOL/L (135-145); TOTAL CARBON DIOXIDE 21.1 MMOL/L (24-32); TOTAL PROTEIN 6.7 G/DL (6.4-8.2); eGFR > 90 ML/MIN
[2021-01-18 17:35] LABS: MAGNESIUM 1.9 MG/DL (1.5-2.4)
[2021-01-18 17:36] LABS: OSMOLALITY 389 MOSM/K (280-300)
[2021-01-18 17:37] LABS: ACETAMINOPHEN < 2.0 UG/ML (10-30); ETHANOL 0.339 GM/DL (0.0-0.010)
[2021-01-18 17:50] LABS: URINE AMPHETAMINE SCREEN NEGATIVE (Neg); URINE BARBITUATE SCREEN NEGATIVE (Neg); URINE BENZODIAZEPINES SCREEN NEGATIVE (Neg); URINE CANNABINOID SCREEN NEGATIVE (Neg); URINE COCAINE SCREEN NEGATIVE (Neg); URINE METHADONE SCREEN NEGATIVE (Neg); URINE OPIATE SCREEN NEGATIVE (Neg); URINE PHENCYCLIDINE SCREEN NEGATIVE (Neg)
--- NOTE | 2021-01-18 19:10 | NUR ---
PATIENT GIVEN WATER, SANDWICH AND CRACKERS.
[2021-01-18] MEDS ORDERED: LORazepam 2 mg/ml vial IV ONE (21:20)
[2021-01-18] MEDS ORDERED: chlordiazePOXIDE 25mg capsule PO ONE (21:25)
[2021-01-18] MEDS ORDERED: levetiracetam 250mg tablet PO ONE (21:45)
[2021-01-18 21:57] LABS: OSMOLALITY 361 MOSM/K (280-300)
[2021-01-18] MEDS ORDERED: thiamine inj. 100 MG in normal saline 100ml IV soln 100 ML IV ONE (22:00)
[2021-01-18 22:04] LABS: ALANINE AMINOTRANSFERASE 30 U/L (12-78); ALBUMIN 3.5 G/DL (3.4-5.0); ALBUMIN/GLOBULIN RATIO 1.2 (1.1-1.5); ALKALINE PHOSPHATASE 70 IU/L (46-116); ANION GAP 10 (8-16); ASPARTATE AMINO TRANSFERASE 16 U/L (10-37); BILIRUBIN,TOTAL 0.1 MG/DL (0.1-1.0); BLOOD UREA NITROGEN 10 MG/DL (7-18); CALCIUM 7.9 MG/DL (8.5-10.1); CHLORIDE 112 MMOL/L (99-107); CREATININE 0.77 MG/DL (0.60-1.10); GLUCOSE 115 MG/DL (70-104); POTASSIUM 3.7 MMOL/L (3.5-5.1); SODIUM 147 MMOL/L (135-145); TOTAL PROTEIN 6.4 G/DL (6.4-8.2); eGFR > 90 ML/MIN
--- NOTE | 2021-01-18 23:09 | NUR ---
PT NROUGHT OVER TO ER OVERFLOW ACCOMPANIED BY STAFF. CIWA STARTED, VITAL SIGNS WNL. PT HAD ATIVAN 1MG IV AND LIBRIUM 25 MG PO AT 2225 PRIOR TO COMING TO ER OVERFLOW. IV THIAMINE STARTED @ 200ML/HR
--- NOTE | 2021-01-19 00:30 | NUR ---
POISON CONTROL CALLED, SPOKE WITH ANNAMARIUM AND GAVE UPDATE. POISON CONTROL REQUESTS CMP, LACTIC ACID, ETHYNOL, AND SERUM OSM BE REDRAWN AFTER 299 ON 01/19
[2021-01-19] MEDS ORDERED: loratadine 10mg tablet PO PRN (00:50)
[2021-01-19] MEDS ORDERED: HYDR-3964 PO (00:57)
[2021-01-19] MEDS ORDERED: MULT-1249 PO (00:57)
[2021-01-19] MEDS ORDERED: LORA-268 PO (00:57)
[2021-01-19] MEDS ORDERED: PROP20TA6 PO (00:57)
[2021-01-19] MEDS ORDERED: LEVE500T PO (00:59)
[2021-01-19] MEDS ORDERED: acetaminophen 325mg tablet PO PRN (01:05)
[2021-01-19] MEDS ORDERED: ondansetron 4mg rapidly disintigrating tab PO PRN (01:05)
[2021-01-19] MEDS: LORazepam 1 MG tablet PO PRN ×3 (02:18→14:42)
--- NOTE | 2021-01-19 02:33 | NUR ---
CIWA SCORE OF 5, PT STILL REPORTING ANXIETY GIVEN 2MG ATIVAN PO PRN. PT ALSO IS HAVING GENERALIZED SORENESS GIVEN 650 MG TYLENOL
--- NOTE | 2021-01-19 03:40 | NUR ---
LABS DRAWN PER POISON CONTROL, CMP, LACTIC ACID, OSMOLALITY
[2021-01-19] MEDS ORDERED: LORazepam 0.5 MG tablet PO PRN (03:50)
[2021-01-19] MEDS ORDERED: HYDROcodone/acetaminophen 5mg/325mg tablet PO PRN ×2 (03:50)
[2021-01-19 04:12] LABS: OSMOLALITY 316 MOSM/K (280-300)
[2021-01-19 04:20] LABS: ALANINE AMINOTRANSFERASE 26 U/L (12-78); ALBUMIN 3.1 G/DL (3.4-5.0); ALBUMIN/GLOBULIN RATIO 1.1 (1.1-1.5); ALKALINE PHOSPHATASE 66 IU/L (46-116); ANION GAP 13 (8-16); ASPARTATE AMINO TRANSFERASE 16 U/L (10-37); BILIRUBIN,TOTAL 0.2 MG/DL (0.1-1.0); BLOOD UREA NITROGEN 10 MG/DL (7-18); BUN/CREATININE RATIO 13.7 (5.4-32.0); CALCIUM 7.7 MG/DL (8.5-10.1); CHLORIDE 109 MMOL/L (99-107); CREATININE 0.73 MG/DL (0.60-1.10); ETHANOL 0.081 GM/DL (0.0-0.010); GLUCOSE 96 MG/DL (70-104); MAGNESIUM 1.4 MG/DL (1.5-2.4); PHOSPHORUS 3.6 MG/DL (2.3-4.5); POTASSIUM 3.5 MMOL/L (3.5-5.1); SODIUM 145 MMOL/L (135-145); TOTAL CARBON DIOXIDE 23.1 MMOL/L (24-32); TOTAL PROTEIN 5.8 G/DL (6.4-8.2); eGFR > 90 ML/MIN
--- NOTE | 2021-01-19 06:40 | NUR ---
Patient sleeping in bed. Respirations are even and unlabored.
[2021-01-19] MEDS ORDERED: naltrexone 50mg tablet PO SCH (08:00)
[2021-01-19] MEDS ORDERED: propranolol 10mg tablet PO SCH (08:00)
[2021-01-19] MEDS ORDERED: folic acid 1mg tablet PO SCH (08:00)
[2021-01-19] MEDS ORDERED: HYDROchlorothiazide 25mg tablet PO SCH (08:00)
[2021-01-19] MEDS ORDERED: pantoprazole 40mg Tablet.DR PO SCH (08:00)
[2021-01-19] MEDS ORDERED: levetiracetam 250mg tablet PO SCH (08:00)
[2021-01-19] MEDS ORDERED: multivitamins, therapeutics tablet PO SCH (08:00)
--- NOTE | 2021-01-19 08:28 | NUR ---
Richa SW called and wanted to give newspaper writer background information. Richa explained that patient needs to be put on a 5150 due to SI, PTSD, and other mental health concerns. She is available if anyone has any questions to give her a call.
--- NOTE | 2021-01-19 09:20 | NUR ---
Patient up to bathroom.
--- NOTE | 2021-01-19 09:28 | NUR ---
FAXED [facility]
--- NOTE | 2021-01-19 09:53 | NUR ---
Patient laying supine in bed. Respirations are even and unlabored.
--- NOTE | 2021-01-19 09:59 | NUR ---
[facility] here to evaluate patient.
--- NOTE | 2021-01-19 11:55 | NUR ---
Patient is being evaluated by [facility].
--- NOTE | 2021-01-19 13:29 | NUR ---
Pt. sleeping supine in bed snoring. No distress noted.
--- NOTE | 2021-01-19 13:47 | NUR ---
Pt. sleeping in bed supine. No distress noted. Poison control called and obtained new lab values. They will follow-up one more time.
--- NOTE | 2021-01-19 14:29 | NUR ---
Patient up to void then back to bed. Eating lunch at this time.
[2021-01-19 17:10] VITALS: BP 135/78
== END 2021-01-19 17:13 | disposition home or self-care (01) ==
LOC: ER 14:53
DX: R45.851 Suicidal ideations (principal); F10.129 Alcohol abuse with intoxication, unspecified; I10 Essential (primary) hypertension; F12.90 Cannabis use, unspecified, uncomplicated; Z86.69 Personal history of other diseases of the nervous system and sense organs; Z98.890 Other specified postprocedural states; Z79.899 Other long term (current) drug therapy; Y90.9 Presence of alcohol in blood, level not specified
CPT/HCPCS: 36415; 80053; 80305; 80320; 80329; 83605; 83735; 83930; 84100; 85025; 85610; 93005; 96361; 96365; 96375; 99285; J2060; J3411; J7030

== ENCOUNTER 2021-11-06 15:25 | Inpatient (IN) | payer MEDICAID ==
[~2021-11-06] VITALS: Ht 175.3 cm; Wt 85.0 kg
[~2021-11-06 15:25] MED LIST changes: +HYDR-3964 PO; -HYDR-3965 PO; -KEP500T PO; +LEVE500T PO; +LORA-268 PO; -LORA-269 PO; -MULT-1074 PO; +MULT-1249 PO; -PROP10TA10 PO; +PROP20TA6 PO
[2021-11-06] MEDS ORDERED: normal saline 1000ML IV soln IVB ONE (16:20)
[2021-11-06] MEDS ORDERED: magnesium 2GM in 50ml NS 50 ML IV ONE (16:20)
[2021-11-06] MEDS ORDERED: phenobarbital inj 260 MG in normal saline 100ml IV soln 100 ML IV ONE (16:20)
[2021-11-06] MEDS ORDERED: thiamine inj. 100 MG in normal saline 100ml IV soln 99 ML IV ONE (16:20)
[2021-11-06 16:29] LABS: BASOPHILS # (AUTO) 0.1 X10'3 (0-0.2); BASOPHILS % (AUTO) 0.9 % (0-1); EOSINOPHILS % (AUTO) 0.1 % (0-6); HEMATOCRIT 46.4 % (42.0-52.0); HEMOGLOBIN 16.2 g/dl (14.0-17.9); LYMPHOCYTES # (AUTO) 1.7 X10'3 (1.1-4.8); LYMPHOCYTES % (AUTO) 25.7 % (21-51); MEAN CORPUSCULAR HEMOGLOBIN 30.4 PG (27.0-31.0); MEAN CORPUSCULAR VOLUME 86.8 FL (78-98); MEAN PLATELET VOLUME 7.8 FL (7.4-10.4); MONOCYTES # (AUTO) 0.4 X10'3 (0-0.9); MONOCYTES % (AUTO) 5.8 % (2-12); NEUTROPHILS # (AUTO) 4.6 X10'3 (1.8-7.7); NEUTROPHILS % (AUTO) 67.5 % (42-75); PLATELET COUNT 331 X10'3 (140-440); RED BLOOD COUNT 5.35 X10'6 (4.70-6.10); WHITE BLOOD COUNT 6.8 X10'3 (4.5-11.0)
[2021-11-06] MEDS ORDERED: haloperidol lactate 5mg/ml inj IM ONE (16:30)
[2021-11-06] MEDS ORDERED: LORazepam 2 mg/ml vial IM ONE (16:30)
[2021-11-06] MEDS ORDERED: diphenhydrAMINE 50 mg/ml inj IM ONE (16:30)
[2021-11-06 16:39] LABS: ALANINE AMINOTRANSFERASE 42 U/L (12-78); ALBUMIN 3.9 G/DL (3.4-5.0); ALBUMIN/GLOBULIN RATIO 1.2 (1.1-1.5); ALKALINE PHOSPHATASE 57 IU/L (46-116); ANION GAP 16 (8-16); ASPARTATE AMINO TRANSFERASE 40 U/L (10-37); BILIRUBIN,TOTAL 0.3 MG/DL (0.1-1.0); BLOOD UREA NITROGEN 8 MG/DL (7-18); BUN/CREATININE RATIO 9.4 (5.4-32.0); CALCIUM 8.3 MG/DL (8.5-10.1); CHLORIDE 104 MMOL/L (99-107); CREATININE 0.85 MG/DL (0.60-1.10); GLUCOSE 144 MG/DL (70-104); POTASSIUM 3.6 MMOL/L (3.5-5.1); SODIUM 143 MMOL/L (135-145); TOTAL CARBON DIOXIDE 23.4 MMOL/L (24-32); TOTAL PROTEIN 7.1 G/DL (6.4-8.2); eGFR > 90 ML/MIN
[2021-11-06 16:42] LABS: MAGNESIUM 2.1 MG/DL (1.5-2.4)
[2021-11-06 16:46] LABS: ETHANOL 0.403 GM/DL (0.0-0.010)
[2021-11-06] MEDS ORDERED: haloperidol lactate 5mg/ml inj IM PRN (17:50)
[2021-11-06] MEDS: thiamine 100mg tablet PO SCH (17:50)
[2021-11-06] MEDS ORDERED: potassium CL 10mEq/100ml bag 100 ML IV PRN (17:50)
[2021-11-06] MEDS ORDERED: acetaminophen 325mg tablet PO PRN (17:50)
[2021-11-06] MEDS ORDERED: potassium Cl 20 mEq SR tablet PO PRN (17:50)
[2021-11-06] MEDS ORDERED: magnesium 2GM in 50ml NS 50 ML IV PRN (17:50)
[2021-11-06] MEDS ORDERED: ondansetron/PF 4mg/2ml inj IV PRN (17:50)
[2021-11-06] MEDS ORDERED: magnesium 4gm in 100ml NS 100 ML IV PRN (17:50)
[2021-11-06] MEDS ORDERED: magnesium Cl slow-release 64mg tablet PO PRN (17:50)
[2021-11-06] MEDS: normal saline 1000ml 1,000 ML IV SCH ×2 (17:50→22:35)
[2021-11-06] MEDS: folic acid 1mg tablet PO SCH (17:50)
[2021-11-06] MEDS ORDERED: dextrose 50%-water 50ml dispensing syringe IV PRN (17:50)
[2021-11-06 19:56] LABS: CLARITY,URINE CLEAR (Clear); COLOR,URINE YELLOW (Yellow); GLUCOSE, URINE NEGATIVE (Neg); KETONES,URINE NEGATIVE (Neg); LEUKOCYTE ESTERASE ,URINE NEGATIVE (Neg); NITRITES, URINE NEGATIVE (Neg); OCCULT BLOOD,URINE NEGATIVE (Neg); PROTEIN,URINE NEGATIVE (Neg); UROBILINOGEN,URINE 0.2 E.U/dL (0.2-1.0)
[2021-11-06 19:57] LABS: UA COLLECTION TYPE CLN CATCH MIDSTREAM
[2021-11-06] MEDS: K and/or MAG REPLACEMENT MC SCH (20:00)
[2021-11-06 20:05] LABS: URINE AMPHETAMINE SCREEN NEGATIVE (Neg); URINE BARBITUATE SCREEN NEGATIVE (Neg); URINE BENZODIAZEPINES SCREEN NEGATIVE (Neg); URINE CANNABINOID SCREEN NEGATIVE (Neg); URINE COCAINE SCREEN NEGATIVE (Neg); URINE METHADONE SCREEN NEGATIVE (Neg); URINE OPIATE SCREEN NEGATIVE (Neg); URINE PHENCYCLIDINE SCREEN NEGATIVE (Neg)
[2021-11-06] MEDS: thiamine 100mg/ml 2ml inj. IV SCH (20:20)
[2021-11-06] MEDS: folic acid 1mg/0.2ml inj IV SCH (22:36)
--- NOTE | 2021-11-06 22:45 | NUR ---
Patient awake and requesting water, I gave him several cups and he wanted more. I updated him on plan of care and asked that he be patient until I have finished setting up his IV medications. While I was doing this he would not listen to me an kept trying to crawl off end of [facility] to get water for himself. He did not follow my direction not to do this, as he was pulling on his IV and had leads and BP cuff attached. I had to request security to come to room, because he was not follow my commands. Eventually he stopped and laid back down on the gurney. I again explained the need for him to follow direction and assured him I would get him water.
[2021-11-07] MEDS: normal saline 1000ml 1,000 ML IV SCH ×2 (04:00→08:04)
--- NOTE | 2021-11-07 04:09 | NUR ---
Patient awake and asking for water.
[2021-11-07] MEDS: LORazepam 2 mg/ml vial IV PRN ×5 (05:59→23:05)
[2021-11-07] MEDS: haloperidol 5mg tablet PO PRN (06:02)
--- NOTE | 2021-11-07 06:04 | NUR ---
Patient's anxiety increasing, he says he feels anxious, his skin is crawling and he is restless. I just gave him Ativan and haldol.
--- NOTE | 2021-11-07 07:10 | NUR ---
Pt awakens to speech. Denies pain. C/O itchy hands.
[2021-11-07 07:58] LABS: EOSINOPHILS % (AUTO) 0.7 % (0-6); HEMATOCRIT 40.3 % (42.0-52.0); HEMOGLOBIN 14.1 g/dl (14.0-17.9); LYMPHOCYTES # (AUTO) 1.1 X10'3 (1.1-4.8); LYMPHOCYTES % (AUTO) 24.7 % (21-51); MEAN CORPUSCULAR HEMOGLOBIN 30.5 PG (27.0-31.0); MEAN CORPUSCULAR VOLUME 87.3 FL (78-98); MEAN PLATELET VOLUME 8.3 FL (7.4-10.4); MONOCYTES # (AUTO) 0.4 X10'3 (0-0.9); MONOCYTES % (AUTO) 8.4 % (2-12); NEUTROPHILS # (AUTO) 2.8 X10'3 (1.8-7.7); NEUTROPHILS % (AUTO) 65.2 % (42-75); PLATELET COUNT 269 X10'3 (140-440); RED BLOOD COUNT 4.62 X10'6 (4.70-6.10); WHITE BLOOD COUNT 4.3 X10'3 (4.5-11.0)
[2021-11-07] MEDS: thiamine 100mg tablet PO SCH (08:00)
[2021-11-07] MEDS: K and/or MAG REPLACEMENT MC SCH ×2 (08:00→19:05)
[2021-11-07] MEDS: folic acid 1mg tablet PO SCH (08:00)
[2021-11-07] MEDS: folic acid 1mg/0.2ml inj IV SCH (08:02)
[2021-11-07] MEDS: thiamine 100mg/ml 2ml inj. IV SCH ×3 (08:03→21:17)
[2021-11-07] MEDS ORDERED: THIA100T70 PO (09:55)
[2021-11-07] MEDS ORDERED: AMLO2.5T2 PO (09:55)
[2021-11-07] MEDS ORDERED: LISI20TA28 PO (09:55)
--- NOTE | 2021-11-07 09:59 | NUR ---
Report given to CLAUDIA Tripp in PCU.
--- NOTE | 2021-11-07 10:01 | NUR ---
PAGED DR MATHEW TO LET HER KNOW MED REC WAS UPDATED
[2021-11-07 10:16] LABS: ALBUMIN 3.3 G/DL (3.4-5.0); ANION GAP 11 (8-16); BLOOD UREA NITROGEN 10 MG/DL (7-18); BUN/CREATININE RATIO 17.9 (5.4-32.0); CALCIUM 7.4 MG/DL (8.5-10.1); CHLORIDE 106 MMOL/L (99-107); CREATININE 0.56 MG/DL (0.60-1.10); GLUCOSE 86 MG/DL (70-104); MAGNESIUM 2.3 MG/DL (1.5-2.4); POTASSIUM 3.9 MMOL/L (3.5-5.1); SODIUM 141 MMOL/L (135-145); TOTAL CARBON DIOXIDE 24.3 MMOL/L (24-32); eGFR > 90 ML/MIN
[2021-11-07 10:45] VITALS: BP 149/97
[2021-11-07 15:00] VITALS: BP 141/92
[2021-11-07 18:00] VITALS: BP 146/88
[2021-11-07] MEDS ORDERED: acetaminophen 325mg tablet PO PRN (18:30)
[2021-11-07] MEDS ORDERED: lisinopril 20mg tablet PO SCH (18:30)
[2021-11-07] MEDS ORDERED: loratadine 10mg tablet PO PRN (18:30)
[2021-11-07] MEDS: amLODIPine 2.5mg tablet PO SCH (21:15)
[2021-11-07] MEDS: metoprolol succinate 25mg (24-HOUR) SR. Tablet PO SCH (21:16)
[2021-11-07] MEDS: HYDROchlorothiazide 25mg tablet PO SCH (21:17)
[2021-11-07] MEDS: levetiracetam 250mg tablet PO SCH (21:17)
[2021-11-07] MEDS: lisinopril 10 MG tablet PO SCH (23:05)
[2021-11-08 02:00] VITALS: BP 126/90
[2021-11-08 06:00] VITALS: BP 130/86
--- NOTE | 2021-11-08 06:44 | NUR ---
Problems reprioritized. Patient report given, questions answered & plan of care reviewed with Aurora.
[2021-11-08 07:33] LABS: BASOPHILS % (AUTO) 0.9 % (0-1); EOSINOPHILS # (AUTO) 0.2 X10'3 (0-0.9); EOSINOPHILS % (AUTO) 3.8 % (0-6); HEMATOCRIT 42.3 % (42.0-52.0); HEMOGLOBIN 14.5 g/dl (14.0-17.9); LYMPHOCYTES # (AUTO) 1.1 X10'3 (1.1-4.8); LYMPHOCYTES % (AUTO) 26.9 % (21-51); MEAN CORPUSCULAR HEMOGLOBIN 30.1 PG (27.0-31.0); MEAN CORPUSCULAR HGB CONC 34.4 g/dL (33.0-36.5); MEAN CORPUSCULAR VOLUME 87.6 FL (78-98); MEAN PLATELET VOLUME 8.1 FL (7.4-10.4); MONOCYTES # (AUTO) 0.4 X10'3 (0-0.9); MONOCYTES % (AUTO) 8.9 % (2-12); NEUTROPHILS # (AUTO) 2.5 X10'3 (1.8-7.7); NEUTROPHILS % (AUTO) 59.5 % (42-75); PLATELET COUNT 235 X10'3 (140-440); RED BLOOD COUNT 4.83 X10'6 (4.70-6.10); RED CELL DISTRIBUTION WIDTH 13.9 % (11.5-14.5); WHITE BLOOD COUNT 4.2 X10'3 (4.5-11.0)
[2021-11-08] MEDS: HYDROchlorothiazide 25mg tablet PO SCH (07:38)
[2021-11-08] MEDS: thiamine 100mg/ml 2ml inj. IV SCH ×3 (07:38→22:33)
[2021-11-08] MEDS: metoprolol succinate 25mg (24-HOUR) SR. Tablet PO SCH (07:38)
[2021-11-08] MEDS: lisinopril 10 MG tablet PO SCH (07:39)
[2021-11-08] MEDS: amLODIPine 2.5mg tablet PO SCH (07:39)
[2021-11-08] MEDS: thiamine 100mg tablet PO SCH (07:40)
[2021-11-08] MEDS: levetiracetam 250mg tablet PO SCH ×2 (07:40→20:10)
[2021-11-08] MEDS: LORazepam 2 mg/ml vial IV PRN ×3 (07:46→23:25)
[2021-11-08] MEDS: folic acid 1mg tablet PO SCH (07:51)
[2021-11-08] MEDS ORDERED: thiamine 100mg tablet PO SCH (08:00)
[2021-11-08] MEDS: K and/or MAG REPLACEMENT MC SCH ×2 (08:00→20:13)
[2021-11-08 08:23] LABS: ALBUMIN 3.5 G/DL (3.4-5.0); ANION GAP 10 (8-16); BLOOD UREA NITROGEN 6 MG/DL (7-18); BUN/CREATININE RATIO 11.8 (5.4-32.0); CALCIUM 7.8 MG/DL (8.5-10.1); CHLORIDE 105 MMOL/L (99-107); CREATININE 0.51 MG/DL (0.60-1.10); GLUCOSE 94 MG/DL (70-104); MAGNESIUM 1.9 MG/DL (1.5-2.4); POTASSIUM 3.4 MMOL/L (3.5-5.1); SODIUM 139 MMOL/L (135-145); TOTAL CARBON DIOXIDE 23.9 MMOL/L (24-32); eGFR > 90 ML/MIN
[2021-11-08 11:00] VITALS: BP 139/96
--- NOTE | 2021-11-08 13:38 | NUR ---
Student documentation: I have reviewed and agree with all interventions, assessments performed and documented by Linn Welch. Addendum: 11/08/21 at 1340 by Esperanza MEZA Amended: Links added.
[2021-11-08 15:00] VITALS: BP 128/86
[2021-11-08] MEDS ORDERED: VANCOMYCIN 1GM/200ML IVPB 200 ML IV ONE (15:10)
[2021-11-08] MEDS: folic acid 1mg/0.2ml inj IV SCH (15:12)
[2021-11-08] MEDS: normal saline 1000ml 1,000 ML IV SCH ×2 (15:13→20:12)
[2021-11-08] MEDS ORDERED: VANCOmycin 2,000MG in NS 500ml IV soln IV ONE (16:00)
[2021-11-08 18:00] VITALS: BP 135/81
[2021-11-08 20:00] VITALS: BP 139/76
[2021-11-08] MEDS: potassium Cl 20 mEq SR tablet PO PRN (20:10)
[2021-11-09] MEDS: VANCOMYCIN 1GM/200ML IVPB 200 ML IV SCH ×3 (00:46→16:05)
[2021-11-09] MEDS: LORazepam 2 mg/ml vial IV PRN ×2 (01:57→05:52)
[2021-11-09 02:00] VITALS: BP 124/88
[2021-11-09] MEDS: normal saline 1000ml 1,000 ML IV SCH ×2 (05:11→07:58)
[2021-11-09] MEDS: potassium Cl 20 mEq SR tablet PO PRN (05:52)
[2021-11-09 06:00] VITALS: BP 114/78
[2021-11-09 06:26] LABS: BASOPHILS # (AUTO) 0.1 X10'3 (0-0.2); BASOPHILS % (AUTO) 0.9 % (0-1); EOSINOPHILS # (AUTO) 0.3 X10'3 (0-0.9); EOSINOPHILS % (AUTO) 4.9 % (0-6); HEMATOCRIT 43.9 % (42.0-52.0); HEMOGLOBIN 14.8 g/dl (14.0-17.9); LYMPHOCYTES # (AUTO) 1.1 X10'3 (1.1-4.8); LYMPHOCYTES % (AUTO) 17.3 % (21-51); MEAN CORPUSCULAR HGB CONC 33.7 g/dL (33.0-36.5); MEAN PLATELET VOLUME 8.1 FL (7.4-10.4); MONOCYTES # (AUTO) 0.5 X10'3 (0-0.9); MONOCYTES % (AUTO) 7.9 % (2-12); NEUTROPHILS # (AUTO) 4.4 X10'3 (1.8-7.7); PLATELET COUNT 244 X10'3 (140-440); RED BLOOD COUNT 4.94 X10'6 (4.70-6.10); RED CELL DISTRIBUTION WIDTH 13.8 % (11.5-14.5); WHITE BLOOD COUNT 6.3 X10'3 (4.5-11.0)
[2021-11-09 06:42] LABS: ALBUMIN 3.3 G/DL (3.4-5.0); ANION GAP 12 (8-16); BLOOD UREA NITROGEN 11 MG/DL (7-18); BUN/CREATININE RATIO 18.6 (5.4-32.0); CALCIUM 8.7 MG/DL (8.5-10.1); CHLORIDE 107 MMOL/L (99-107); CREATININE 0.59 MG/DL (0.60-1.10); GLUCOSE 108 MG/DL (70-104); MAGNESIUM 1.9 MG/DL (1.5-2.4); POTASSIUM 4.2 MMOL/L (3.5-5.1); SODIUM 140 MMOL/L (135-145); TOTAL CARBON DIOXIDE 21.4 MMOL/L (24-32); eGFR > 90 ML/MIN
[2021-11-09] MEDS: metoprolol succinate 25mg (24-HOUR) SR. Tablet PO SCH (07:41)
[2021-11-09] MEDS: amLODIPine 2.5mg tablet PO SCH (07:46)
[2021-11-09] MEDS: folic acid 1mg tablet PO SCH (07:46)
[2021-11-09] MEDS: thiamine 100mg tablet PO SCH (07:47)
[2021-11-09] MEDS: HYDROchlorothiazide 25mg tablet PO SCH (07:48)
[2021-11-09] MEDS: lisinopril 10 MG tablet PO SCH (07:48)
[2021-11-09] MEDS: LORazepam 1 MG tablet PO PRN ×9 (07:57→22:58)
[2021-11-09] MEDS: levetiracetam 250mg tablet PO SCH ×2 (07:57→19:30)
[2021-11-09] MEDS: K and/or MAG REPLACEMENT MC SCH ×2 (08:00→19:35)
[2021-11-09 10:00] VITALS: BP 132/86
[2021-11-09 14:30] VITALS: BP 136/87
[2021-11-09] MEDS ORDERED: VANCOMYCIN LEVEL IV ONE (15:30)
[2021-11-09 19:30] VITALS: BP 126/88
[2021-11-09 22:00] VITALS: BP 122/90
[2021-11-10] MEDS: LORazepam 1 MG tablet PO PRN ×7 (00:27→18:49)
[2021-11-10] MEDS: normal saline 1000ml 1,000 ML IV SCH ×3 (01:50→21:50)
[2021-11-10 02:22] VITALS: BP 121/80
[2021-11-10 02:43] VITALS: BP 124/80
[2021-11-10 06:00] VITALS: BP 114/90
--- NOTE | 2021-11-10 06:11 | NUR ---
Problems reprioritized. Patient report given, questions answered & plan of care reviewed with
[2021-11-10 06:24] LABS: BASOPHILS # (AUTO) 0.1 X10'3 (0-0.2); BASOPHILS % (AUTO) 0.8 % (0-1); EOSINOPHILS # (AUTO) 0.3 X10'3 (0-0.9); EOSINOPHILS % (AUTO) 4.4 % (0-6); HEMATOCRIT 44.3 % (42.0-52.0); LYMPHOCYTES # (AUTO) 1.6 X10'3 (1.1-4.8); LYMPHOCYTES % (AUTO) 22.7 % (21-51); MEAN CORPUSCULAR HGB CONC 33.8 g/dL (33.0-36.5); MEAN CORPUSCULAR VOLUME 88.7 FL (78-98); MEAN PLATELET VOLUME 7.7 FL (7.4-10.4); MONOCYTES # (AUTO) 0.6 X10'3 (0-0.9); MONOCYTES % (AUTO) 8.7 % (2-12); NEUTROPHILS # (AUTO) 4.5 X10'3 (1.8-7.7); NEUTROPHILS % (AUTO) 63.4 % (42-75); PLATELET COUNT 263 X10'3 (140-440); RED BLOOD COUNT 4.99 X10'6 (4.70-6.10); WHITE BLOOD COUNT 7.2 X10'3 (4.5-11.0)
[2021-11-10 06:36] LABS: ALBUMIN 3.7 G/DL (3.4-5.0); ANION GAP 16 (8-16); BLOOD UREA NITROGEN 10 MG/DL (7-18); BUN/CREATININE RATIO 16.1 (5.4-32.0); CALCIUM 9.3 MG/DL (8.5-10.1); CHLORIDE 104 MMOL/L (99-107); CREATININE 0.62 MG/DL (0.60-1.10); GLUCOSE 90 MG/DL (70-104); MAGNESIUM 1.7 MG/DL (1.5-2.4); SODIUM 140 MMOL/L (135-145); TOTAL CARBON DIOXIDE 20.3 MMOL/L (24-32); eGFR > 90 ML/MIN
[2021-11-10 06:41] LABS: POTASSIUM 4.3 MMOL/L (3.5-5.1)
[2021-11-10] MEDS: K and/or MAG REPLACEMENT MC SCH ×2 (08:00→20:00)
[2021-11-10] MEDS: metoprolol succinate 25mg (24-HOUR) SR. Tablet PO SCH (08:16)
[2021-11-10] MEDS: HYDROchlorothiazide 25mg tablet PO SCH (08:17)
[2021-11-10] MEDS: amLODIPine 2.5mg tablet PO SCH (08:17)
[2021-11-10] MEDS: lisinopril 10 MG tablet PO SCH (08:17)
[2021-11-10] MEDS: levetiracetam 250mg tablet PO SCH ×2 (08:18→20:34)
[2021-11-10] MEDS: ceFAZolin/D5W- 1GM premix 50 ML IV SCH ×3 (08:18→17:31)
[2021-11-10] MEDS: thiamine 100mg tablet PO SCH (08:18)
[2021-11-10] MEDS: folic acid 1mg tablet PO SCH (08:18)
[2021-11-10 10:00] VITALS: BP 128/92
--- NOTE | 2021-11-10 10:13 | NUR ---
Initial: Pt admit dx EtOH, SVT, and ALOC per EMR. Pt PO intake ~100% of heart healthy diet and meeting estimated nutrition needs per EMR. LBM 2/10 and skin intact w/ no edema present per EMR. No nutrition intervention needed at this time. Will continue to monitor. Recommendations: 1. Consider liberalizing to regular diet given no significant nutrition-related cardiac hx 2. Routine bowel care 3. Scaled wt this admit, subsequent weekly wts Addendum: 11/10/21 at [address] Amended: Links added. Addendum: 11/10/21 at [address] I have reviewed assessment by finance accounting internship
[2021-11-10 14:00] VITALS: BP 109/91
[2021-11-10] MEDS ORDERED: LORazepam 2 mg/ml vial IV PRN (17:50)
[2021-11-10 18:00] VITALS: BP 110/90
--- NOTE | 2021-11-10 18:54 | NUR ---
Pt verbalizes understanding with education re: fall risk, the need to use the call button, and overall safety. He still is very impulsive and forgetful. Continuous to disconnect himself from monitor and gets up to the bathroom by himself. Education provided and bed alarm has been used.
[2021-11-10] MEDS: haloperidol 5mg tablet PO PRN (20:34)
[2021-11-11] MEDS: haloperidol 5mg tablet PO PRN ×2 (01:24→23:47)
[2021-11-11] MEDS: ceFAZolin/D5W- 1GM premix 50 ML IV SCH ×4 (02:02→23:48)
[2021-11-11 02:05] VITALS: BP 112/72
[2021-11-11 06:00] VITALS: BP 118/90
[2021-11-11 06:42] LABS: BASOPHILS % (AUTO) 0.6 % (0-1); EOSINOPHILS # (AUTO) 0.2 X10'3 (0-0.9); HEMATOCRIT 41.6 % (42.0-52.0); HEMOGLOBIN 14.2 g/dl (14.0-17.9); LYMPHOCYTES % (AUTO) 26.8 % (21-51); MEAN CORPUSCULAR HEMOGLOBIN 30.2 PG (27.0-31.0); MEAN CORPUSCULAR HGB CONC 34.3 g/dL (33.0-36.5); MEAN CORPUSCULAR VOLUME 88.1 FL (78-98); MEAN PLATELET VOLUME 7.9 FL (7.4-10.4); MONOCYTES # (AUTO) 0.6 X10'3 (0-0.9); MONOCYTES % (AUTO) 8.1 % (2-12); NEUTROPHILS # (AUTO) 4.6 X10'3 (1.8-7.7); NEUTROPHILS % (AUTO) 61.5 % (42-75); PLATELET COUNT 245 X10'3 (140-440); RED BLOOD COUNT 4.72 X10'6 (4.70-6.10); RED CELL DISTRIBUTION WIDTH 13.7 % (11.5-14.5); WHITE BLOOD COUNT 7.4 X10'3 (4.5-11.0)
[2021-11-11 07:22] LABS: ALBUMIN 3.3 G/DL (3.4-5.0); ANION GAP 10 (8-16); BLOOD UREA NITROGEN 11 MG/DL (7-18); BUN/CREATININE RATIO 16.9 (5.4-32.0); CALCIUM 8.5 MG/DL (8.5-10.1); CHLORIDE 107 MMOL/L (99-107); CREATININE 0.65 MG/DL (0.60-1.10); GLUCOSE 89 MG/DL (70-104); POTASSIUM 4.1 MMOL/L (3.5-5.1); SODIUM 140 MMOL/L (135-145); TOTAL CARBON DIOXIDE 23.5 MMOL/L (24-32); eGFR > 90 ML/MIN
[2021-11-11] MEDS: normal saline 1000ml 1,000 ML IV SCH (07:50)
[2021-11-11] MEDS: K and/or MAG REPLACEMENT MC SCH ×2 (08:00→19:08)
[2021-11-11] MEDS: metoprolol succinate 25mg (24-HOUR) SR. Tablet PO SCH (08:11)
[2021-11-11] MEDS: lisinopril 10 MG tablet PO SCH (08:12)
[2021-11-11] MEDS: folic acid 1mg tablet PO SCH (08:12)
[2021-11-11] MEDS: thiamine 100mg tablet PO SCH (08:12)
[2021-11-11] MEDS: HYDROchlorothiazide 25mg tablet PO SCH (08:12)
[2021-11-11] MEDS: amLODIPine 2.5mg tablet PO SCH (08:12)
[2021-11-11] MEDS: LORazepam 1 MG tablet PO PRN (08:13)
[2021-11-11] MEDS: levetiracetam 250mg tablet PO SCH ×2 (08:13→20:23)
[2021-11-11 10:00] VITALS: BP 134/79
[2021-11-11 14:00] VITALS: BP 124/75
[2021-11-11 18:00] VITALS: BP 108/80
--- NOTE | 2021-11-11 18:34 | NUR ---
Problems reprioritized. Patient report given, questions answered & plan of care reviewed with CLAUDIA Newton.
[2021-11-11] MEDS ORDERED: LORazepam 1 MG tablet PO ONE (20:50)
[2021-11-11] MEDS ORDERED: prazosin 1mg capsule PO SCH (21:00)
[2021-11-11 22:00] VITALS: BP 110/74
--- NOTE | 2021-11-12 06:32 | NUR ---
Problems reprioritized. Patient report given, questions answered & plan of care reviewed with Alex.
--- NOTE | 2021-11-12 06:46 | NUR ---
Patient in room 307. I have received report from CLAUDIA MCLAUGHLIN and had the opportunity to ask questions and assume patient care.
[2021-11-12] MEDS: ceFAZolin/D5W- 1GM premix 50 ML IV SCH (07:48)
[2021-11-12] MEDS: levetiracetam 250mg tablet PO SCH (07:48)
[2021-11-12] MEDS: metoprolol succinate 25mg (24-HOUR) SR. Tablet PO SCH (07:48)
[2021-11-12] MEDS: HYDROchlorothiazide 25mg tablet PO SCH (07:49)
[2021-11-12] MEDS: lisinopril 10 MG tablet PO SCH (07:49)
[2021-11-12] MEDS: amLODIPine 2.5mg tablet PO SCH (07:49)
[2021-11-12] MEDS: folic acid 1mg tablet PO SCH (07:49)
[2021-11-12] MEDS: thiamine 100mg tablet PO SCH (07:50)
[2021-11-12] MEDS: K and/or MAG REPLACEMENT MC SCH (07:55)
[2021-11-12 07:58] VITALS: BP 110/77
[2021-11-12] MEDS ORDERED: LORA-269 PO (11:13)
[2021-11-12] MEDS ORDERED: LEVO750T46 PO (11:13)
[2021-11-12] MEDS ORDERED: METO-395 PO (11:13)
--- NOTE | 2021-11-12 12:24 | NUR ---
Patient discharged went home via yellow cab [id number] NO DISTRESS/DISCOMFORT NOTED.
== END 2021-11-12 11:30 | disposition home or self-care (01) | DRG 720 ==
LOC: ER 15:29 → ED HOLD 17:56 → PCU 3S 11-07 10:20 → MED 3N 11-08 19:20
PROVIDERS: ADMIT Internal Medicine; ATTEND Internal Medicine
DX: A41.9 Sepsis, unspecified organism (principal); F10.121 Alcohol abuse with intoxication delirium; F10.131 Alcohol abuse with withdrawal delirium; I47.1 Supraventricular tachycardia; H53.8 Other visual disturbances; B95.7 Other staphylococcus as the cause of diseases classified elsewhere; B95.5 Unspecified streptococcus as the cause of diseases classified elsewhere; Y90.8 Blood alcohol level of 240 mg/100 ml or more; G40.909 Epilepsy, unspecified, not intractable, without status epilepticus; I10 Essential (primary) hypertension; K21.9 Gastro-esophageal reflux disease without esophagitis; F43.10 Post-traumatic stress disorder, unspecified; F32.A Depression, unspecified; Z79.899 Other long term (current) drug therapy
CPT/HCPCS: 36415; 70450; 71045; 80048; 80053; 80202; 80305; 80320; 81003; 82140; 83605; 83735; 84484; 85025; 87040; 87077; 87081; 87186; 93005; 96365; 96366; 96368; 96372; 97116; 97161; 97530; 99285; G0378; J0690; J1200; J1630; J2060; J2560; J3370; J3411; J3475; J3490; J7030; J7040

== ENCOUNTER 2021-11-14 13:14 | Emergency (ER) | payer MEDICAID ==
[~2021-11-14] VITALS: Ht 175.3 cm; Wt 104.5 kg
[~2021-11-14 13:14] MED LIST changes: +AMLO2.5T2 PO; -FOLI0.8T3 PO; -HYDR-3964 PO; +LEVO750T46 PO; +LISI20TA28 PO; -LORA-268 PO; +LORA-269 PO; +METO-395 PO; -MULT-1249 PO; -NALT50TA PO; -ONDA-103 PO; -PANT-47 PO; -PROP20TA6 PO; +THIA100T70 PO
[2021-11-14 13:21] VITALS: BP 123/81
--- NOTE | 2021-11-14 13:30 | NUR ---
when asked how much he drank his respose was he does not know but he did drink
[2021-11-14] MEDS ORDERED: normal saline 1000ML IV soln IVB ONE (13:40)
[2021-11-14] MEDS ORDERED: thiamine 100mg/ml 2ml inj. IV ONE (13:50)
[2021-11-14] MEDS ORDERED: famotidine/PF 10 mg/ml inj IV ONE (13:50)
[2021-11-14] MEDS ORDERED: folic acid 1mg/0.2ml inj IV ONE (13:50)
[2021-11-14] MEDS ORDERED: ondansetron/PF 4mg/2ml inj IV ONE (13:50)
[2021-11-14 14:03] LABS: BASOPHILS % (AUTO) 0.6 % (0-1); EOSINOPHILS % (AUTO) 0.7 % (0-6); HEMATOCRIT 44.2 % (42.0-52.0); HEMOGLOBIN 14.9 g/dl (14.0-17.9); LYMPHOCYTES # (AUTO) 1.6 X10'3 (1.1-4.8); LYMPHOCYTES % (AUTO) 29.5 % (21-51); MEAN CORPUSCULAR HEMOGLOBIN 29.9 PG (27.0-31.0); MEAN CORPUSCULAR HGB CONC 33.8 g/dL (33.0-36.5); MEAN CORPUSCULAR VOLUME 88.5 FL (78-98); MEAN PLATELET VOLUME 7.4 FL (7.4-10.4); MONOCYTES # (AUTO) 0.6 X10'3 (0-0.9); MONOCYTES % (AUTO) 10.3 % (2-12); NEUTROPHILS # (AUTO) 3.2 X10'3 (1.8-7.7); NEUTROPHILS % (AUTO) 58.9 % (42-75); PLATELET COUNT 258 X10'3 (140-440); RED BLOOD COUNT 4.99 X10'6 (4.70-6.10); RED CELL DISTRIBUTION WIDTH 14.6 % (11.5-14.5); WHITE BLOOD COUNT 5.5 X10'3 (4.5-11.0)
[2021-11-14 14:15] LABS: ALANINE AMINOTRANSFERASE 55 U/L (12-78); ALBUMIN 3.7 G/DL (3.4-5.0); ALBUMIN/GLOBULIN RATIO 1.2 (1.1-1.5); ANION GAP 8 (8-16); ASPARTATE AMINO TRANSFERASE 36 U/L (10-37); BILIRUBIN,TOTAL 0.2 MG/DL (0.1-1.0); BLOOD UREA NITROGEN 7 MG/DL (7-18); BUN/CREATININE RATIO 9.5 (5.4-32.0); CHLORIDE 107 MMOL/L (99-107); CREATININE 0.74 MG/DL (0.60-1.10); GLUCOSE 141 MG/DL (70-104); SODIUM 145 MMOL/L (135-145); TOTAL CARBON DIOXIDE 29.7 MMOL/L (24-32); TOTAL PROTEIN 6.8 G/DL (6.4-8.2); eGFR > 90 ML/MIN
[2021-11-14 14:18] LABS: ETHANOL 0.382 GM/DL (0.0-0.010)
--- NOTE | 2021-11-14 14:29 | NUR ---
PT CONTINUES TO NOT BE ABLE TO FOLLOW DIRECTIONS, CLIMBING OUT OF BED WITH SIDE RALES UP AND FALLING. OBTAINED A VERBAL ORDER FOR NOT BEHAVIORAL RESTRAINTS. PT WAS PLACED IN NON-BEHAVIORAL RETRAINTS AND WAS ABLE TO GET OUT OF THEM Addendum: 11/14/21 at 1433 by GLORIA PT IS BECOMING COMBATIVE AND STARTING TO SWING AT STAFF. PROVIDER REQUESTED PT BE ALLOWED TO LEAVE AND [facility] BE CALLED.
--- NOTE | 2021-11-14 14:38 | NUR ---
KIARRA CALLED, PT NOW WANTING TO COOPERATE AND REFUSING TO LEAVE
--- NOTE | 2021-11-14 14:41 | NUR ---
pt now wanting to say in bed and keeps pulling bp and o2 moniter off and unable to start iv at this time informed pa dianne pt climbed out of bed to us bathroom give urinal voided and was able to talk him back in to bed once in bed he said something that i could not hear asked him to repiet what he said he climged right out of bed mad with his fists balled up ready to start swinging saying that i should be lisening and not asking him to repet himself
[2021-11-14 15:07] LABS: URINE AMPHETAMINE SCREEN NEGATIVE (Neg); URINE BARBITUATE SCREEN POSITIVE (Neg); URINE BENZODIAZEPINES SCREEN NEGATIVE (Neg); URINE CANNABINOID SCREEN NEGATIVE (Neg); URINE COCAINE SCREEN NEGATIVE (Neg); URINE METHADONE SCREEN NEGATIVE (Neg); URINE OPIATE SCREEN NEGATIVE (Neg); URINE PHENCYCLIDINE SCREEN NEGATIVE (Neg)
== END 2021-11-14 14:54 | disposition home or self-care (01) ==
LOC: ER 13:15
DX: F10.129 Alcohol abuse with intoxication, unspecified (principal); R45.1 Restlessness and agitation; Y90.9 Presence of alcohol in blood, level not specified; I10 Essential (primary) hypertension; F12.10 Cannabis abuse, uncomplicated; Z79.899 Other long term (current) drug therapy
CPT/HCPCS: 36415; 80053; 80305; 80320; 85025; 93005; 99284

== ENCOUNTER 2021-11-15 08:57 | Emergency (ER) | payer MEDICAID ==
[~2021-11-15] VITALS: Ht 172.7 cm; Wt 95.9 kg
[2021-11-15 09:18] VITALS: BP 153/106
[2021-11-15] MEDS ORDERED: thiamine 100mg/ml 2ml inj. IV ONE (09:35)
[2021-11-15] MEDS ORDERED: LORazepam 2 mg/ml vial IV ONE (09:35)
[2021-11-15] MEDS ORDERED: folic acid 1mg/0.2ml inj IV ONE (09:35)
[2021-11-15] MEDS ORDERED: normal saline 1000ML IV soln IV ONE (09:35)
[2021-11-15] MEDS ORDERED: ondansetron/PF 4mg/2ml inj IV ONE (09:35)
[2021-11-15 10:39] LABS: ALANINE AMINOTRANSFERASE 55 U/L (12-78); ALBUMIN 3.5 G/DL (3.4-5.0); ALBUMIN/GLOBULIN RATIO 1.3 (1.1-1.5); ANION GAP 12 (8-16); ASPARTATE AMINO TRANSFERASE 40 U/L (10-37); BILIRUBIN,TOTAL 0.4 MG/DL (0.1-1.0); BLOOD UREA NITROGEN 9 MG/DL (7-18); BUN/CREATININE RATIO 10.8 (5.4-32.0); CALCIUM 7.7 MG/DL (8.5-10.1); CHLORIDE 100 MMOL/L (99-107); CREATININE 0.83 MG/DL (0.60-1.10); GLUCOSE 103 MG/DL (70-104); MAGNESIUM 1.4 MG/DL (1.5-2.4); POTASSIUM 3.9 MMOL/L (3.5-5.1); SODIUM 137 MMOL/L (135-145); TOTAL CARBON DIOXIDE 24.8 MMOL/L (24-32); TOTAL PROTEIN 6.2 G/DL (6.4-8.2); eGFR > 90 ML/MIN
[2021-11-15 11:34] LABS: BASOPHILS % (AUTO) 0.4 % (0-1); EOSINOPHILS % (AUTO) 0.5 % (0-6); HEMATOCRIT 37.7 % (42.0-52.0); HEMOGLOBIN 12.7 g/dl (14.0-17.9); LYMPHOCYTES # (AUTO) 0.8 X10'3 (1.1-4.8); LYMPHOCYTES % (AUTO) 13.3 % (21-51); MEAN CORPUSCULAR HGB CONC 33.6 g/dL (33.0-36.5); MEAN CORPUSCULAR VOLUME 89.2 FL (78-98); MEAN PLATELET VOLUME 7.5 FL (7.4-10.4); MONOCYTES # (AUTO) 0.9 X10'3 (0-0.9); MONOCYTES % (AUTO) 15.4 % (2-12); NEUTROPHILS # (AUTO) 4.3 X10'3 (1.8-7.7); NEUTROPHILS % (AUTO) 70.4 % (42-75); PLATELET COUNT 203 X10'3 (140-440); RED BLOOD COUNT 4.23 X10'6 (4.70-6.10); RED CELL DISTRIBUTION WIDTH 14.7 % (11.5-14.5); WHITE BLOOD COUNT 6.2 X10'3 (4.5-11.0)
[2021-11-15 13:19] LABS: ANISOCYTOSIS FEW; PLATELET ESTIMATE NORMAL; TOTAL CELLS COUNTED 100
[2021-11-15 13:20] LABS: HYPERSEGMENTED NEUTROPHILS FEW; SMUDGE CELLS FEW
== END 2021-11-15 13:01 | disposition home or self-care (01) ==
LOC: ER 08:58
DX: F10.230 Alcohol dependence with withdrawal, uncomplicated (principal); R11.0 Nausea; R19.7 Diarrhea, unspecified; R45.1 Restlessness and agitation; I10 Essential (primary) hypertension; F12.90 Cannabis use, unspecified, uncomplicated; Z86.69 Personal history of other diseases of the nervous system and sense organs; Z98.890 Other specified postprocedural states; Z72.89 Other problems related to lifestyle; Z79.2 Long term (current) use of antibiotics; Z79.899 Other long term (current) drug therapy; Y90.9 Presence of alcohol in blood, level not specified
CPT/HCPCS: 36415; 80053; 83735; 85007; 85025; 93005; 96361; 96374; 96375; 99284; J2060; J2405; J3411; J3490; J7030